=== PATIENT | female | born 1960 | race Caucasian/White ===

== ENCOUNTER 2022-09-09 21:45 | Day surgery (SDC) | payer OTHER, SELFPAY ==
[2022-09-09 21:52] VITALS: BP 165/91; PULSE 83; RESP 20; TEMP 36.3; O2SAT 99; BMI 23.0
[2022-09-09 22:17] VITALS: BP 142/80; PULSE 73; RESP 14; TEMP 36.4; O2SAT 98
--- NOTE | 2022-09-09 22:50 | ED.GENADULT ---
HPI - General Adult General Chief complaint: General Medical Stated complaint: meat stuck in throat Time Seen by Provider: 09/09/22 22:31 History of Present Illness HPI narrative: This is a 61-year-old female with a history of hypercholesterolemia who was eating pot roast this evening when a piece of meat became lodged in her lower throat. The patient states that when she drinks water, the water gurgling came back up. She is tolerating her saliva. She has continued discomfort in her lower throat. She denies any trouble breathing. She denies any other significant past medical history, is on cholesterol medicine only Related Data Allergies Allergy/AdvReac Type Severity Reaction Status Date / Time erythromycin base Allergy Mild RASH Unverified 07/25/20 16:25 [ERYTHROMYCIN BASE] tetracycline [TETRACYCLINE] Allergy Mild RASH Unverified 07/25/20 16:25 Review of Systems Review of Systems: As per HPI Constitutional: Constitutional: Denies fever(s) Eyes: Eyes: Reports no additional eye complaints ENT: Reports as per HPI Cardiovascular: Cardiovascular: Reports no additional cardiovascular complaints Respiratory: Respiratory: Reports no additional respiratory complaints Gastrointestinal: Gastrointestinal: Reports no additional gastrointestinal complaints Musculoskeletal: Musculoskeletal: Reports no additional musculoskeletal complaints [facility] Social History Social History Advance Directives: No Advance Directives Information Provided: No Patient : No Physical Exam ED Vital Signs: Vital Signs - 24 hr 09/09/22 21:52 09/09/22 22:17 Temperature 97.3 F 97.6 F Pulse Rate 83 73 Respiratory Rate 20 14 Blood Pressure 165/91 H 142/80 H Pulse Oximetry 99 98 Oxygen Delivery Method Room Air Room Air BMI result Body Mass Index 23.0 Const Other: Patient sitting up on edge of bed, somewhat uncomfortable appearing, tolerating secretions but when drinks water, it comes back up General: no acute distress Orientation/consciousness: patient oriented x3 HENMT Head: Yes normal to inspection General nose exam: Normal external nose present Mouth: moist mucous membranes Throat: Yes posterior oropharynx normal, Yes tonsils normal and Yes uvula midline Eyes Eyelids: Yes eyelids normal Conjunctivae: conjunctivae normal Pupils: Equal, round and reactive pupils present Neck Neck: Yes supple Resp Effort & Inspection: normal respiratory effort Auscultation: clear to auscultation bilaterally Cardio Rate: regular rate Rhythm: regular rhythm Heart sounds: S1 normal heart sound present, S2 normal heart sound present, no gallops, no murmurs and no rubs GI Inspection: No distended Palpation (GI): Soft to palpation and nontender Auscultation: normal bowel sounds Skin General skin exam: other (Warm and dry) Neuro General: patient oriented x3 and CN's II-XI intact bilaterally Cranial nerves: Yes Equal, round and reactive pupils present Extrem General: Yes no pedal edema Psych Affect: normal affect Attitude: cooperative Medical Decision Making [facility] Narrative Medical decision making narrative: Patient with a bolus of food, namely a piece of pot roast, lodged in her lower throat or upper esophagus. Patient did not have any benefit from glucagon. Dr. Hargrove of GI was consulted and patient is going to the endoscopy suite for removal of the impacted food. Lab Data Lab results reviewed: Yes I reviewed the patient's lab results. Result diagrams: 09/09/22 23:29 09/09/22 23:29 Labs: Lab Results 09/09/22 09/09/22 09/09/22 Range/Units 23:29 23:29 23:55 WBC 5.9 (4.8-10.8) X10*3/uL RBC 4.07 L (4.20-5.50) X10*6/uL Hgb 11.9 L (12.0-16.0) g/dl Hct 37.8 (37.0-47.0) % MCV 92.9 (80.0-98.0) fL MCH 29.2 (27.0-33.0) pg MCHC 31.5 (31.0-35.0) g/dl RDW 12.5 (11.0-16.0) % Plt Count 179 (160-400) X10*3/uL MPV 10.9 (9.4-12.3) fL Immature Gran % (Auto) 0.3 (0.0-0.4) % Neut % (Auto) 73.2 H (45-73) % Lymph % (Auto) 16.0 L (20-40) % Greer % (Auto) 7.0 (2-11) % Eos % (Auto) 2.7 (0-4) % Baso % (Auto) 0.8 (0-2) % Lymph # (Auto) 0.9 L (1.2-4.9) X10*3/uL Gre[place] # (Auto) 0.4 (0.1-1.2) X10*3/uL Eos # (Auto) 0.2 (0.0-0.4) X10*3/uL Baso # (Auto) 0.1 (0.0-0.2) X10*3/uL Abs Immat Gran (auto) 0.02 (0.00-0.03) X10*3/uL Absolute Neuts (auto) 4.3 (2.0-8.3) x10*3/uL Absolute Nucleated RBC 0.000 (0.0-0.012) X10*3/uL Nucleated RBC % (auto) 0.0 (0.0-0.2) /100WBC Sodium 144 (135-145) mmol/L Potassium 4.3 (3.3-5.1) mmol/L Chloride 106 (96-108) mmol/L Carbon Dioxide 29 (22-29) mmol/L Anion Gap 13 (12-20) BUN 20 H (9-16) mg/dL Creatinine 0.78 (0.5-1.4) mg/dL Estim Creat Clear Calc 61.8 Estimated GFR > 60 Random Glucose 124 H (60-115) mg/dL Calcium 9.8 (8.4-10.2) mg/dL Total Bilirubin 0.3 (0.0-1.0) mg/dL AST 17 (5-31) U/L ALT 15 (0-31) U/L Alkaline Phosphatase 90 (39-117) U/L Total Protein 7.3 (6.5-8.0) g/dL Albumin 4.6 (3.5-5.0) g/dL COVID-19 (NIYAH) Negative (Negative) COVID-19 Clin Com See Note Discharge Plan Discharge Clinical Impression: Food impaction of esophagus Patient Disposition: Admitted as Observation
[2022-09-09 23:34] LABS: MANUAL DIFF FLAG NO
[2022-09-09 23:35] LABS: Basophils Absolute Auto 0.1 X10*3/uL (0.0-0.2); Basophils Percent Auto 0.8 % (0-2); Eosinophils Absolute Auto 0.2 X10*3/uL (0.0-0.4); Eosinophils Percent Auto 2.7 % (0-4); Hematocrit 37.8 % (37.0-47.0); Hemoglobin 11.9 g/dl (12.0-16.0); Imm Gran Abs Auto 0.02 X10*3/uL (0.00-0.03); Imm Gran Pct Auto 0.3 % (0.0-0.4); Lymphocytes Absolute Auto 0.9 X10*3/uL (1.2-4.9); Mean Corpuscular HGB Conc 31.5 g/dl (31.0-35.0); Mean Corpuscular Hemoglobin 29.2 pg (27.0-33.0); Mean Corpuscular Volume 92.9 fL (80.0-98.0); Mean Platelet Volume 10.9 fL (9.4-12.3); Monocytes Absolute Auto 0.4 X10*3/uL (0.1-1.2); Neutrophils Absolute Auto 4.3 x10*3/uL (2.0-8.3); Neutrophils Percent Auto 73.2 % (45-73); Platelet Count 179 X10*3/uL (160-400); Red Blood Count 4.07 X10*6/uL (4.20-5.50); Red Cell Distribution Width 12.5 % (11.0-16.0); White Blood Count 5.9 X10*3/uL (4.8-10.8)
[2022-09-09 23:51] LABS: Alanine Aminotransferase 15 U/L (0-31); Albumin Level 4.6 g/dL (3.5-5.0); Alkaline Phosphatase 90 U/L (39-117); Anion Gap 13 (12-20); Aspartate Amino Transferase 17 U/L (5-31); Bilirubin Total 0.3 mg/dL (0.0-1.0); Blood Urea Nitrogen 20 mg/dL (9-16); Calcium 9.8 mg/dL (8.4-10.2); Carbon Dioxide 29 mmol/L (22-29); Chloride 106 mmol/L (96-108); Creatinine Clr Calc Pharmacy 61.8; Estimated Glomerular Filt Rate > 60; Glucose Random 124 mg/dL (60-115); Potassium 4.3 mmol/L (3.3-5.1); Sodium 144 mmol/L (135-145); Total Protein 7.3 g/dL (6.5-8.0)
--- NOTE | 2022-09-10 00:12 | HO.ANESPROP2 ---
[facility] Past Medical History Functional capacity: independent ambulation Patient : No Family History Family history of problems with anesthesia: No Surgical History History of Problems with Anesthesia: No Social History Social History Advance Directives: No Advance Directives Information Provided: No Patient : No Meds Allergies Allergy/AdvReac Type Severity Reaction Status Date / Time erythromycin base Allergy Mild RASH Unverified 07/25/20 16:25 [ERYTHROMYCIN BASE] tetracycline [TETRACYCLINE] Allergy Mild RASH Unverified 07/25/20 16:25 Exam Exam Date and Time: September 10, 2022 0012 Height,Weight and Vital Signs: Height 5 ft 3 in Weight 58.967 kg Last Vital Signs Temp 97.6 F 09/09/22 22:17 Pulse 73 09/09/22 22:17 Resp 14 09/09/22 22:17 BP 142/80 H 09/09/22 22:17 Pulse Ox 98 09/09/22 22:17 O2 Del Method 09/09/22 22:17 Pertinent Lab Results Pertinent Lab Results: Laboratory Tests 09/09/22 09/09/22 23:29 23:29 WBC 5.9 RBC 4.07 L Hgb 11.9 L Hct 37.8 MCV 92.9 MCH 29.2 MCHC 31.5 RDW 12.5 Plt Count 179 MPV 10.9 Immature Gran % (Auto) 0.3 Neut % (Auto) 73.2 H Lymph % (Auto) 16.0 L Meagher % (Auto) 7.0 Eos % (Auto) 2.7 Baso % (Auto) 0.8 Lymph # (Auto) 0.9 L Meagher # (Auto) 0.4 Eos # (Auto) 0.2 Baso # (Auto) 0.1 Abs Immat Gran (auto) 0.02 Absolute Neuts (auto) 4.3 Absolute Nucleated RBC 0.000 Nucleated RBC % (auto) 0.0 Sodium 144 Potassium 4.3 Chloride 106 Carbon Dioxide 29 Anion Gap 13 BUN 20 H Creatinine 0.78 Estim Creat Clear Calc 61.8 Estimated GFR > 60 Random Glucose 124 H Calcium 9.8 Total Bilirubin 0.3 AST 17 ALT 15 Alkaline Phosphatase 90 Total Protein 7.3 Albumin 4.6 Airway Mallampati Class: II TM Dist: >3cm Neck ROM: Full Heart: RRR Lungs: CTA Assessment and Plan Assessment Anesthesia Assessment: Anesthesia Plan Discussed and Chart Reviewed Final Anesthetic Review Family History of Problems with Anesthesia: No History of Problems with Anesthesia: No ASA Class: II and Emergency Final Preanesthetic Review: Meds/Allgs Chart Reviewed, Consent Obtained/Reviewed and Anes Risks/Benef Reviewed Patient Risk: Low Procedure Risk: Low Anesthetic Plan Anesthetic Plan: GA Disposition: Standard PACU
--- NOTE | 2022-09-10 00:14 | MHC.SHP ---
Pre-Procedural Eval Section A Date of Service: 09/10/22 The patient is an INPATIENT: No Changes since office visit: No Cold of Flu in the past 2 weeks, No New Medical Problems, No Changes in Medication and No Patient answered all questions The History & Physical has been completed within 30 days and I have reviewed it.: Yes Section B Chief Complaint: meat stuck in throat Allergies: Allergies Allergy/AdvReac Type Severity Reaction Status Date / Time erythromycin base Allergy Mild RASH Unverified 07/25/20 16:25 [ERYTHROMYCIN BASE] tetracycline [TETRACYCLINE] Allergy Mild RASH Unverified 07/25/20 16:25 Plan I have reviewed the history and physical and performed a pertinent physical examination on my patient. No changes have occurred unless specified.
[2022-09-10 00:17] LABS: COVID-19 Test Negative (Negative); IDNOW Serial# 16C4AD1C
--- NOTE | 2022-09-10 00:55 | P.BOP_ITS ---
Brief Operative Note Date of Service: 09/10/22 Pre-op diagnosis: fb esophagus Post-op diagnosis: same Procedure: egd Surgeon: Tarun Hargrove Anesthesia: GETA Was an [facility] used for this Procedure?: No Estimated blood loss (mL): 2 Pathology: none sent Condition: stable Disposition: PACU
[2022-09-10 01:06] VITALS: BP 136/73; PULSE 71; RESP 16; TEMP 36.1; O2SAT 95
--- NOTE | 2022-09-10 01:09 | HO.POSTANES ---
Post Anesthesia Evaluation Post Anesthesia Evaluation Vital Signs: Vital Signs Temp Pulse Resp BP Pulse Ox O2 Del Method 09/09/22 22:17 97.6 F 73 14 142/80 H 98 Room Air 09/09/22 21:52 97.3 F 83 20 165/91 H 99 Room Air Anesthesia: Monitored Pain Control: Satisfactory Nausea/Vomiting: None Hydration: Adequate Anesthesia-Related Issues: No Anes. Related Issues
[2022-09-10 01:21] VITALS: BP 135/73; PULSE 61; RESP 16; TEMP 36.1; O2SAT 96
--- NOTE | 2022-09-10 08:27 | OP_ITS ---
SURGEON: Tarun Hargrove MD INDICATIONS: Esophageal foreign body. PREOPERATIVE DIAGNOSIS: POSTOPERATIVE DIAGNOSIS: PROCEDURE PERFORMED: Upper endoscopy with removal of foreign body on 09/10/22. ESTIMATED BLOOD LOSS: COMPLICATIONS: ANESTHESIA: General anesthesia. ASSISTANTS: SPECIMENS: DESCRIPTION OF PROCEDURE: History and physical performed. The risks and benefits of the procedure were explained to the patient. Informed consent was obtained. The patient was placed in the left lateral decubitus position. The Olympus video gastroscope was introduced into the esophagus, stomach, and duodenum. Examination was performed. The scope was removed. She tolerated the procedure well and was taken to recovery area in stable condition. FINDINGS: Esophagus: Just below the upper esophageal sphincter, there was a large food bolus consistent with impacted meat. This was gently pushed into the stomach. There was a slight superficial laceration at the site of the food bolus at about 16 cm from the lips. There was no stricture. The remainder of the esophagus was normal. Stomach: The stomach was normal. Duodenum: The bulb and second portion were normal. IMPRESSION: Foreign body of esophagus. RECOMMENDATION: 1. Soft diet x24 hours. 2. Follow up as needed. MD TERRI Calhoun/BALA / [id number] MTDD
--- NOTE | 2022-09-10 08:50 | CONS_ITS ---
DATE OF SERVICE: 09/10/2022 REFERRING PHYSICIAN: Dr. Lundberg REASON FOR CONSULTATION: Foreign body in the esophagus. HISTORY OF PRESENT ILLNESS: The patient is a pleasant 61-year-old woman who presented to the ER earlier this evening with complaints of dysphagia. Symptoms began around 9 p.m. when she was eating meat. Since that time, she has been unable to swallow water. She denies a prior history of esophageal problems. She has not had food impactions before. She has no chronic GERD symptoms. She has never undergone upper endoscopy. PAST MEDICAL HISTORY: 1. Lupus. 2. Elevated cholesterol. CURRENT MEDICATIONS: She takes a cholesterol medication. ALLERGIES: MEDICATION ALLERGIES ARE REVIEWED IN THE ELECTRONIC MEDICAL RECORD. FAMILY HISTORY: This is reviewed and is noncontributory. SOCIAL HISTORY: She does occasionally vape. She does drink alcohol. She denies other substance use. REVIEW OF SYSTEMS: SKIN: No pruritus. HEENT: Negative. CARDIOPULMONARY: No shortness of breath or chest pain. GASTROINTESTINAL: As above. GENITOURINARY: Negative. NEUROPSYCHIATRIC: Negative. PHYSICAL EXAMINATION: GENERAL: Shows a pleasant female, lying in bed. VITAL SIGNS: Reviewed in the electronic medical record and are stable. SKIN: Anicteric. HEENT: Shows poor dentition. NECK: Without lymphadenopathy or thyromegaly. LUNGS: Clear. HEART: Shows a regular rate and rhythm. S1, S2. No murmur. ABDOMEN: Soft without focal masses or tenderness. Bowel sounds are present. No organomegaly is noted. EXTREMITIES: Without edema. IMPRESSION: Foreign body, esophagus. PLAN: Upper endoscopy. Risks and benefits of the procedure have been discussed with the patient who understands and agrees to proceed. MD TERRI Calhoun/BALA / [id number] KEENA
--- NOTE | 2022-09-10 09:22 | MHC.CM.PN ---
Patient d/c'd home before being seen by case management.
== END 2022-09-10 01:58 | disposition home or self-care (01) ==
LOC: HO.ED 09-10 01:52 → HO.SSS 09-10 01:58
PROVIDERS: Physician Assistant; Emergency Provider Emergency Medicine; PCP Internal Medicine; Visit Provider Internal Medicine Gastroenterology
PROC: 0DJ08ZZ Inspection of Upper Intestinal Tract, Via Natural or Artificial Opening Endoscopic (ICD-10-PCS; CPT 43235; principal; 2022-09-10 00:10)
DX: T18.128A Food in esophagus causing other injury, initial encounter (principal); X58.XXXA Exposure to other specified factors, initial encounter; Y93.89 Activity, other specified; Y92.019 Unspecified place in single-family (private) house as the place of occurrence of the external cause; Y99.9 Unspecified external cause status; E78.00 Pure hypercholesterolemia, unspecified; Z79.899 Other long term (current) drug therapy; Z88.1 Allergy status to other antibiotic agents; Z20.822 Contact with and (suspected) exposure to COVID-19
CPT/HCPCS: 43247; 36415; 80053; 85025; 87635; 96374; 99285; J1100; J1610; J2405; J3010

== ENCOUNTER 2024-05-06 22:08 | Inpatient (IN) | payer OTHER, SELFPAY ==
--- NOTE | ~2024-05-06 | XR_ITS ---
EXAMINATION: XR CHEST CLINICAL INFORMATION: Chest tube removal. Follow-up right pneumothorax. COMPARISON: Earlier 05/10/2024 examination. TECHNIQUE: Frontal view of the chest was obtained. FINDINGS: Right-sided chest tube is been removed. Small right apical pneumothorax stable. Right basilar infiltrate and pleural effusion stable. The patient is rotated. Mediastinal structures therefore are angled towards the left hemithorax but I suspect this is positional. No change. Skin folds are present overlying the left hemithorax and there is left basilar consolidation and pleural effusion which are stable. The right-sided port is stable in position. Heart size is normal with normal caliber pulmonary vessels. XR/XR chest 1V IMPRESSION: Status post removal of the right-sided chest tube. Tiny right apical pneumothorax is again visualized and is considered stable.
--- NOTE | ~2024-05-06 | XR_ITS ---
EXAMINATION: XR CHEST CLINICAL INFORMATION: Right chest tube placement. COMPARISON: CT from 05/06/2024 TECHNIQUE: Frontal view of the chest was obtained. FINDINGS: There is a pigtail chest tube overlying the right upper lobe. Small right pneumothorax is again noted, not appreciably changed as compared to prior. Right IJ port catheter tip terminates near the inferior cavoatrial junction within the right atrium. Cavitary consolidation in the right lower lobe is again noted. Atelectasis is again seen in the left lower lobe with a trace left pleural effusion. No left-sided pneumothorax. Cardiac and mediastinal contours are normal. No acute osseous findings. Blunting of the left distal clavicle, potentially due to an old injury or prior distal clavicular resection. XR/XR chest 1V IMPRESSION: 1. Small right pneumothorax, not appreciably changed as compared to prior. Right chest tube in place. 2. Cavitary consolidation in the right lower lobe, unchanged. 3. Trace left pleural effusion with left lower lobe atelectasis.
--- NOTE | ~2024-05-06 | US_ITS ---
Ultrasound paracentesis History: Ascites. Pancreatic cancer Risks and benefits and possible complications were discussed with the patient and consent form was signed. A safe pocket of ascitic fluid was identified using ultrasound guidance, and the overlying skin was marked. The abdomen prepped and draped in sterile fashion. 1% lidocaine was used as a local anesthetic. Using ultrasound guidance, a 5 fr catheter was placed into the ascitic pocket. 1.9 liters of yellow fluid was removed passively. The catheter was then removed. A few field support representative images from before and after the examination were obtained. The procedure was performed by Ted Bey PA-C and supervised by Dr. Alejandra. US/US paracentesis abd w/image Impression: Ultrasound-guided paracentesis as described above. No immediate complications
--- NOTE | ~2024-05-06 | CT_ITS ---
EXAMINATION: CT CHEST WITHOUT CONTRAST CLINICAL INFORMATION: Fall. Concern for pneumothorax. COMPARISON: None available. TECHNIQUE: Multidetector volumetric CT imaging of the chest was done. Axial MIP volume rendering provided. Sagittal and coronal reformatted images were obtained. This CT examination was performed using dose optimization techniques as appropriate, variously including the following: *Automated exposure control *Adjustment of mA and/or kV according to patient size (this includes techniques or standardized protocols for targeted exams where dose is matched to indication/reason for exam; i.e. extremities or head) *Use of iterative reconstruction technique DLP: 176 mGy-cm FINDINGS: LUNGS: Dense consolidation at the posterior right lung base. Regions of cavitation in this area of consolidation. There is consolidation volume loss the left lung base without evidence of cavitation. MEDIASTINUM: Heart size is normal. No pericardial effusion. Central port catheter tip at the caval atrial junction in superior vena cava. CORONARY ARTERY CALCIFICATION: None visualized on this study. PLEURA: Small volume right-sided pneumothorax. Small volume bilateral pleural effusions. AXILLA: No lymphadenopathy. UPPER ABDOMEN: Abdominal ascites. OSSEOUS STRUCTURES: Unremarkable. CT/CT chest wo IV con IMPRESSION: 1. Small volume right-sided pneumothorax. 2. Dense consolidation at the posterior right lung base with areas of cavitation. This may be source for the pneumothorax. 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 3. Consolidation volume loss at the left lung base without evidence of cavitation. 4. Small volume bilateral pleural effusions. 5. Abdominal ascites. Fleischner guidelines were followed. This critical result was discussed with Katelin JACKSON on 05/07/2024, 12:26 AM and it was ascertained that the content and urgency of the report was understood at the time of direct communication.
--- NOTE | ~2024-05-06 | XR_ITS ---
EXAMINATION: XR CHEST CLINICAL INFORMATION: Follow-up pneumothorax. COMPARISON: Chest radiograph 05/09/2024 2:01 PM. TECHNIQUE: Frontal view of the chest was obtained. FINDINGS: 6 the right thoracostomy tube is unchanged in configuration. A right pectoral tunneled internal jugular catheter terminates in projection with the inferior margin of the right atrium. A trace right pneumothorax is again noted and is unchanged in size compared with 05/09/2024 2:01 PM measuring approximately 10%. Mild blunting of left right costophrenic sulci is noted along with bibasilar airspace type opacities. XR/XR chest 1V IMPRESSION: *Unchanged small right pneumothorax compared with 05/09/2024 2:01 PM. Estimated size: Less than 10%. *Unchanged small bilateral pleural effusions and mild bibasilar atelectasis and/or consolidation.
--- NOTE | ~2024-05-06 | CT_ITS ---
EXAMINATION: CT head/brain wo IV con CT cervical spine wo IV con INDICATION INFORMATION: fall, head strike, on thinners COMPARISON: None TECHNIQUE: Separate noncontrast CT examinations of the head and cervical spine were performed. Coronal and sagittal reformats were obtained at the acquisition workstation. This CT examination was performed using dose optimization techniques as appropriate, variously including the following: * Automated exposure control * Adjustment of mA and/or kV according to patient size (this includes techniques or standardized protocols for targeted exams where dose is matched to indication/reason for exam; i.e. extremities or head) * Use of iterative reconstruction technique DLP: 785 mGy-cm FINDINGS: HEAD: There is no evidence of acute intracranial hemorrhage or territorial infarction. Yoon to white matter differentiation is well preserved. No abnormal mass effect or midline shift is seen. No extra-axial fluid collections are identified. No hydrocephalus. No significant volume loss. Patchy periventricular and deep white matter hypoattenuation is consistent with mild small vessel ischemic changes. The cerebellar tonsils are well positioned. Subgaleal hematoma overlying the high posterior left parietal scalp without underlying calvarial fracture. Hyperostosis frontalis interna. Visualized portions of the orbits are unremarkable. The mastoid air cells and visualized portions of the paranasal sinuses are well aerated. CERVICAL SPINE: No evidence of acute fracture or traumatic subluxation of the cervical spine. Normal cervical lordosis with mild anterolisthesis of C4 on C5 and C7 on T1. Vertebral body heights and intervertebral disc spaces are maintained. Mild multilevel facet arthropathy. The atlantoaxial and atlantooccipital articulations are intact. No prevertebral soft tissue swelling. There is no cervical lymphadenopathy. Heterogeneous thyroid. Small right apical pneumothorax partially visualized. CT/CT cervical spine wo IV con IMPRESSION: 1. No acute intracranial pathology. Subgaleal hematoma overlying the high posterior left parietal scalp without underlying calvarial fracture. 2. No acute osseous abnormality within the cervical spine. 3. Small right apical pneumothorax partially visualized. These results were discussed with Dr. Jenkins by telephone on 05/06/2024 at 11:31 PM and it was ascertained that the content of the report was understood at the time of direct communication.
--- NOTE | ~2024-05-06 | XR_ITS ---
EXAMINATION: XR CHEST CLINICAL INFORMATION: Follow-up pneumothorax COMPARISON: Chest radiograph 05/07/2024, CT chest 05/06/2024 TECHNIQUE: Frontal view of the chest was obtained. FINDINGS: Heart size normal. Right chest wall jugular port with tip positioned low at the IVC/right atrial junction. Bilateral pleural effusions appear slightly increased when compared to prior. Right sided pneumothorax has decreased in size with right chest tube present with a small residual apical pneumothorax. Bibasilar atelectasis is seen and unchanged with rounded area at the right lung base.. XR/XR chest 1V IMPRESSION: 1. Decreased size of right-sided pneumothorax with small residual apical pneumothorax. 2. Bilateral pleural effusions appear slightly increased when compared to prior. 3. Bibasilar atelectasis with rounded area at the right lung base.
--- NOTE | ~2024-05-06 | XR_ITS ---
EXAMINATION: XR CHEST CLINICAL INFORMATION: Follow-up pneumothorax COMPARISON: Chest radiograph 05/08/2024 8:18 AM TECHNIQUE: Frontal view of the chest was obtained. FINDINGS: A right thoracostomy tube is unchanged in configuration. A right pectoral tunneled internal jugular catheter terminates projection with the inferior margin of the right atrium. Moderate blunting of the left right costophrenic sulci visualized. A trace apical right pneumothorax is visualized and is less conspicuous than on the comparison examination. Coarse bibasilar reticular opacities and airspace opacities are noted. XR/XR chest 1V IMPRESSION: *Trace right pneumothorax decreased in size compared with 05/08/2024 8:18 AM. *Persistent small bilateral pleural effusions and mild bibasilar atelectasis and/or consolidation.
--- NOTE | ~2024-05-06 | XR_ITS ---
EXAMINATION: XR CHEST CLINICAL INFORMATION: Pneumothorax reevaluation COMPARISON: Prior 05/09/2024 study. TECHNIQUE: Frontal view of the chest was obtained. FINDINGS: Right-sided thoracostomy tube is stable in appearance. The right-sided port is stable in appearance. Bibasilar pleural effusions are stable as are bibasilar areas of atelectasis or infiltrate. The previously described tiny right apical pneumothorax is unchanged and barely conspicuous. Skin folds overlie the left hemithorax. Heart size normal normal caliber pulmonary vessels. XR/XR chest 1V IMPRESSION: Stable trace right pneumothorax.
[2024-05-06 22:14] VITALS: BP 125/62; PULSE 86; RESP 20; TEMP 37.2; O2SAT 94; BMI 17.7
--- NOTE | 2024-05-06 23:32 | ED.FALL ---
HPI - Fall General Chief Complaint: Fall Stated Complaint: Fall head inj/on blood thinners Time Seen by Provider: 05/06/24 23:20 Source: patient Mode of arrival: ambulatory Limitations: no limitations History of Present Illness ED Provider: regla HEREDIA Narrative: Patient's history of pancreatic adenocarcinoma cancer diagnosed on 01/01 history of PE and cavitary pneumonia right lung, on Eliquis discharged from [facility] 04/24/2024-05/04/2024 was outside on the porch tripped and fell backwards onto cement step comes here with laceration to the back of the head denies any shortness of breath or any other injuries no chest pain no back pain patient camein cervical collar Related Data Allergies Allergy/AdvReac Type Severity Reaction Status Date / Time erythromycin base Allergy Mild RASH Verified 05/06/24 22:16 [ERYTHROMYCIN BASE] tetracycline [TETRACYCLINE] Allergy Mild RASH Verified 05/06/24 22:16 Review of Systems Review of Systems: Yes all other systems are reviewed and are negative [facility] Past Medical History Medical History (Updated 05/07/24 @ 07:14 by Phani Jenkins MD) Cavitary pneumonia Graves disease Discoid lupus Hyperlipidemia Pulmonary embolism Adenocarcinoma of pancreas Social History Social History Smoked in Last 30 Days: Yes Use of substances other than those prescribed or required for medical reasons: No Advance Directives: No Advance Directives Information Provided: No Do you have a plan to hurt others: No Plan Patient : No Physical Exam Vital Signs: Vital Signs: Last Vital Signs Temp 98.9 F 05/06/24 22:14 Pulse 61 05/07/24 05:10 Resp 17 05/07/24 05:10 BP 112/66 05/07/24 05:10 Pulse Ox 98 05/07/24 05:10 O2 Del Method Nasal Cannula 05/07/24 05:10 O2 Flow Rate 1 05/07/24 05:10 BMI result Body Mass Index 17.7 Appearance: Alert. Oriented X3. No acute distress. Emaciated thin Eyes: PERRLA, No Nystagmus HEENT: Pharynx normal. Oral Mucosa moist superficial laceration at the occipital area Neck: Normal inspection. Neck supple. CVS: Normal heart rate and rhythm. Pulses normal. Respiratory: No respiratory distress. Equal air entry bilateral, no wheezing/rales/rhonchi Port-A-Cath on the right side Abdomen: Soft and nontender. Bowel sounds are present, no mass palpable, no CVA tenderness Skin: Skin warm and dry. Normal skin color. Normal skin turgor. Extremities: No lower extremity edema. No calf tenderness Neuro: Oriented X 3. No motor deficit. No sensory deficit.No cerebellar signs , cranial nerves II-XII intact Medications Administered Generic Name Dose Route Start Last Admin Trade Name Freq PRN Reason Stop Dose Admin Lactated Ringer's 1,000 mls @ 80 mls/hr 05/07/24 03:30 05/07/24 03:38 Lr IVCONT 05/07/24 13:29 80 mls/hr .[id number] GARRY Administration Discontinued Medications Generic Name Dose Route Start Last Admin Trade Name Freq PRN Reason Stop Dose Admin Piperacillin Sod/Tazobactam 50 mls @ 100 mls/hr 05/07/24 01:58 05/07/24 03:03 Sod 3.375 gm/ Sodium Chloride IV 05/07/24 02:27 Infused ONCE ONE Infusion Lidocaine HCl 5 ml 05/07/24 01:26 05/07/24 01:57 Lidocaine Hcl 1 % Mpf 5 Ml Vial INFILTRATI 05/07/24 01:27 5 ml ONCE ONE Administration Morphine Sulfate 4 mg 05/07/24 01:26 05/07/24 01:35 Morphine Sulfate 4 Mg/Ml Cartridge IVPUSH 05/07/24 01:27 4 mg ONCE ONE Administration Protocol Ondansetron HCl 4 mg 05/07/24 01:26 05/07/24 01:35 Ondansetron Hcl 4 Mg/2 Ml Vial IVPUSH 05/07/24 01:27 4 mg ONCE ONE Administration Oxycodone HCl 15 mg 05/07/24 03:14 05/07/24 03:33 Oxycodone Hcl Immed Release 15 Mg Tablet PO 05/07/24 03:15 15 mg ONCE ONE Administration Procedures Chest Tube Chest Tube 1: Chest Tube Location: right and anterior axillary line Size of Tube (cm): 7 Chest Tube Prep: Yes betadine prep Local Anesthetic: lidocaine 1% Amount of anesthesia used (mL): 5 Incision Made With: #11 blade Post Procedure: sutured to skin and sterile dressing applied Tube Drainage: none Laceration Laceration 1: Site: scalp Size (cm): 3 Description: linear Depth: simple, single layer Skin layer closed with: other ([place] #6) Medical Decision Making Medical Decision Making [facility] Narrative: Patient with history of pancreatic cancer cavitary right pneumonia PE came after mechanical fall patient admitted discharge from [facility] on 05/04 on Augmentin comes here after mechanical fall at CT C-spine negative chest CT showed 10-15% right pneumothorax with? Broncho pulmonary fistula? Patient had a pigtail catheter placed spoke with Dr. Braswell thoracic surgeon will follow in a.m. will admit patient for cavitary pneumonia/bronchopulmonary fistula/pneumothorax patient is saturating 92% at room air improved to 99% on 2 L erlin placed on scalp laceration Differential Diagnosis Differential Diagnoses: The differential diagnosis associated with the presentation includes As above Admission/Observation Consideration of admission/observation: Escalation of care including admission/observation considered Consult Healthcare Provider Management of the patient was discussed with: Hospitalist Lab Data [facility] Lab Attestation statement: I reviewed the patient's lab results. 05/07/24 05:22 05/07/24 05:22 Labs: Lab Results 05/07/24 05/07/24 05/07/24 Range/Units 00:38 00:39 01:10 WBC 12.7 H (4.8-10.8) X10*3/uL RBC 3.37 L (4.20-5.50) X10*6/uL Hgb 9.4 L D (12.0-16.0) g/dl Hct 29.3 L D (37.0-47.0) % MCV 86.9 (80.0-98.0) fL MCH 27.9 (27.0-33.0) pg MCHC 32.1 (31.0-35.0) g/dl RDW 18.4 H (11.0-16.0) % Plt Count 395 D (160-400) X10*3/uL MPV 10.1 (9.4-12.3) fL Immature Gran % (Auto) 1.1 H (0.0-0.4) % Neut % (Auto) 82.0 H (45-73) % Lymph % (Auto) 11.1 L (20-40) % [place] % (Auto) 5.5 (2-11) % Eos % (Auto) 0.1 (0-4) % Baso % (Auto) 0.2 (0-2) % Lymph # (Auto) 1.4 (1.2-4.9) X10*3/uL Kingman # (Auto) 0.7 (0.1-1.2) X10*3/uL Eos # (Auto) 0.0 (0.0-0.4) X10*3/uL Baso # (Auto) 0.0 (0.0-0.2) X10*3/uL Abs Immat Gran (auto) 0.14 H (0.00-0.03) X10*3/uL Absolute Neuts (auto) 10.4 H (2.0-8.3) x10*3/uL Absolute Nucleated RBC 0.000 (0.0-0.012) X10*3/uL Nucleated RBC % (auto) 0.0 (0.0-0.2) /100WBC PT 17.4 H (11.1-13.3) SEC INR 1.4 H (0.9-1.1) APTT 29.0 (26.0-36.8) SEC Sodium 133 L (135-145) mmol/L Potassium 4.4 (3.3-5.1) mmol/L Chloride 95 L (96-108) mmol/L Carbon Dioxide 26 (22-29) mmol/L Anion Gap 16 (12-20) BUN 6 L (9-16) mg/dL Creatinine 0.49 L (0.5-1.4) mg/dL Estim Creat Clear Calc 85.5 Estimated GFR > 60 Random Glucose 139 H (60-115) mg/dL Lactic Acid 1.0 (0.5-2.0) mmol/L Calcium 9.2 D (8.4-10.2) mg/dL Phosphorus 3.7 (2.7-4.5) mg/dL Magnesium 1.7 (1.6-2.6) mg/dL Total Bilirubin 0.3 (0.0-1.0) mg/dL AST 33 H (5-31) U/L ALT 14 (0-31) U/L Alkaline Phosphatase 88 (39-117) U/L Total Protein 7.4 (6.5-8.0) g/dL Albumin 2.5 L (3.5-5.0) g/dL Independent Interpretation I performed an independent interpretation of an: Plain X-Ray and CT Scan Radiology Impression Discussion of test interpretation with radiology: I have reviewed the radiologist's reading. Radiologist Impression: CT/CT chest wo IV con IMPRESSION: 1. Small volume right-sided pneumothorax. 2. Dense consolidation at the posterior right lung base with areas of cavitation. This may be source for the pneumothorax. 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 3. Consolidation volume loss at the left lung base without evidence of cavitation. 4. Small volume bilateral pleural effusions. 5. Abdominal ascites. Fleischner guidelines were followed. External Record Review External record reviewed: Inpatient record Critical Care Time Critical Care Time Critical Care Time: Yes Total Critical Care Time: 70 Attestation: The patient was critically ill with a high probability of imminent or life threatening deterioration. I spent greater than 70???minutes of discontinuous time evaluating the patient,delivering critical care at the bedside, discussing and evaluating pertinent data with consultants. Critical care time does not include time spent performing separately billable procedures or teaching. Total time spent performing critical care was 65???minutes. Discharge Plan Discharge Clinical Impression: Laceration of scalp, Pneumothorax on right, Cavitary pneumonia, Pancreatic cancer Patient Disposition: Admitted As Inpatient
[2024-05-06 23:37] VITALS: BP 133/71; PULSE 84; RESP 18; O2SAT 93
[2024-05-07] VITALS: BP 138/71; PULSE 78; RESP 14; O2SAT 98
[2024-05-07 00:44] LABS: MANUAL DIFF FLAG NO
[2024-05-07 00:45] LABS: Basophils Percent Auto 0.2 % (0-2); Eosinophils Percent Auto 0.1 % (0-4); Hematocrit 29.3 % (37.0-47.0); Hemoglobin 9.4 g/dl (12.0-16.0); Imm Gran Abs Auto 0.14 X10*3/uL (0.00-0.03); Imm Gran Pct Auto 1.1 % (0.0-0.4); Lymphocytes Absolute Auto 1.4 X10*3/uL (1.2-4.9); Lymphocytes Percent Auto 11.1 % (20-40); Mean Corpuscular HGB Conc 32.1 g/dl (31.0-35.0); Mean Corpuscular Hemoglobin 27.9 pg (27.0-33.0); Mean Corpuscular Volume 86.9 fL (80.0-98.0); Mean Platelet Volume 10.1 fL (9.4-12.3); Monocytes Absolute Auto 0.7 X10*3/uL (0.1-1.2); Monocytes Percent Auto 5.5 % (2-11); Neutrophils Absolute Auto 10.4 x10*3/uL (2.0-8.3); Platelet Count 395 X10*3/uL (160-400); Red Blood Count 3.37 X10*6/uL (4.20-5.50); Red Cell Distribution Width 18.4 % (11.0-16.0); White Blood Count 12.7 X10*3/uL (4.8-10.8)
[2024-05-07 00:51] LABS: INTERNATIONAL NORM RATIO 1.4 (0.9-1.1); Prothrombin Time 17.4 SEC (11.1-13.3)
[2024-05-07 01:04] LABS: Alanine Aminotransferase 14 U/L (0-31); Albumin Level 2.5 g/dL (3.5-5.0); Alkaline Phosphatase 88 U/L (39-117); Anion Gap 16 (12-20); Aspartate Amino Transferase 33 U/L (5-31); Bilirubin Total 0.3 mg/dL (0.0-1.0); Blood Urea Nitrogen 6 mg/dL (9-16); Calcium 9.2 mg/dL (8.4-10.2); Carbon Dioxide 26 mmol/L (22-29); Chloride 95 mmol/L (96-108); Creatinine Clr Calc Pharmacy 85.5; Estimated Glomerular Filt Rate > 60; Glucose Random 139 mg/dL (60-115); Potassium 4.4 mmol/L (3.3-5.1); Sodium 133 mmol/L (135-145); Total Protein 7.4 g/dL (6.5-8.0)
[2024-05-07] MEDS: Morphine Sulfate 4 MG/ML CARTRIDGE IVPUSH (01:35)
[2024-05-07] MEDS: ondansetron HCL 4 MG/2 ML VIAL IVPUSH (01:35)
[2024-05-07] MEDS: Lidocaine HCl 1 % MPF 5 ML VIAL INFILTRATI (01:57)
[2024-05-07] MEDS: Piperacillin Sodium/Tazobactam 3.375 GM in 0.9 % Sodium Chloride 50 ML IV (02:32)
--- NOTE | 2024-05-07 02:42 | PC.NURSE ---
Pigtail chest tube placed at bedside by MD Jenkins with this RN assisting. Pt tolerated insertion well, no acute distress. pt placed on O2 via NC for support, no respiratory distress noted. Clamp of chst tube closed to outside.
--- NOTE | 2024-05-07 03:27 | PM.IMHP ---
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 She fell because she has been feeling very weak, fell back hitting her head. She denied any loss of consciousness, headache, dizziness or palpitations. She did not report any shortness on breath, cough or chest pain. Her appetite has been very poor. She was recently admitted to [facility] for 10 days and was discharged 3 days ago. During this last hospitalization she underwent a pulmonary CTA that was concerning for pulmonary abscess + pneumonia and treated with IV antibiotics. She was also found to have a hemoglobin of 6.4 for which 1 unit of PRBC was transfused. The patient was evaluated by the ID service and was transitioned from Zosyn IV to Augmentin PO (4-6 weeks). The patient was evaluated by the neurology service as she was found to have hyponatremia, initiating urea tablets along with fluid restriction. Subsequently sodium levels improved and urea was stopped. Mrs. Ballard underwent a Port-A-Cath revision on May 03 by IR as her Port-A-Cath was noted to have an erosion. In the ED, she was found to have normal vital signs including normal oxygen saturation on room air. Blood workup was remarkable for leukocytosis of 12.7 and hemoglobin of 9.4. There is no lactic acidosis. Albumin is 2.5. There is hyponatremia of 133 and hypochloremia. INR is 1.4. Other lytes are normal. Creatinine is 0.49. LFTs are essentially normal. Head CT scan scan showed no acute intracranial pathology, subgaleal hematoma overlying the high posterior left parietal scalp without underlying calvarial fractures, C-spine without dislocation or fractures and small right apical pneumothorax partially visualized. 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 ED tx: Zosyn 3.375 g IV, morphine 4 mg IV, Zofran 4 mg IV Review of Systems Review of Systems: All 12 systems were reviewed and normal except as noted in HPI. [facility] Medical History (Updated 05/07/24 @ 05:05 by Ed Mackay MD) Cavitary pneumonia Graves disease Discoid lupus Hyperlipidemia Pulmonary embolism Adenocarcinoma of pancreas Social History Smoked in Last 30 Days: Yes Use of substances other than those prescribed or required for medical reasons: No Advance Directives: No Advance Directives Information Provided: No Do you have a plan to hurt others: No Plan Patient : No Meds Allergies Allergy/AdvReac Type Severity Reaction Status Date / Time erythromycin base Allergy Mild RASH Verified 05/06/24 22:16 [ERYTHROMYCIN BASE] tetracycline [TETRACYCLINE] Allergy Mild RASH Verified 05/06/24 22:16 Active Medications: Current Medications Acetaminophen (Acetaminophen 325 Mg Tablet) 975 mg PO Q6H PRN PRN Reason: Pain, Mild (Pain Scale 1-3), fever or headache Lactated Ringer's (Lr) 1,000 mls @ 80 mls/hr IVCONT .[id number] [facility] Sodium Chloride (0.9 % Sodium Chloride Flush 3 Ml Syringe) 3 ml IVFLUSH QSHIFT [facility] Physical Exam Vital Signs and Narrative: Vital Signs: Last Vital Signs Temp 98.9 F 05/06/24 22:14 Pulse 78 05/07/24 00:00 Resp 14 05/07/24 00:00 BP 138/71 05/07/24 00:00 Pulse Ox 98 05/07/24 00:00 O2 Del Method Nasal Cannula 05/07/24 00:00 O2 Flow Rate 2 05/07/24 00:00 BMI result Body Mass Index 17.7 Constitutional - Awake and Alert, No apparent distress. Pleasant. Cooperative. Cachectic. HEENT - Left parietal region hematoma. Pupils equally round. Normal sclerae. Dry oral mucosa. Heart - RRR, No murmurs. Lungs - Normal lung expansion, poor respiratory effort due to pain, No respiratory distress, CTA bilaterally Abdomen - Distended. Positive fluid wave/sinus. Nontender numbness. Extremities - lower extremity pitting edema. Musculoskeletal - generalized muscle wasting. Skin - Warm/Dry. No pallor. No jaundice. Neurological - Alert & oriented x3. No focal weakness grossly noted. Normal speech. Psychological - Appropriate affect Results Labs 05/07/24 00:38 05/07/24 00:39 Labs: Laboratory Results - last 24 hr 05/07/24 05/07/24 05/07/24 00:38 00:39 01:10 MCV 86.9 MCH 27.9 MCHC 32.1 RDW 18.4 H Plt Count 395 D MPV 10.1 Immature Gran % (Auto) 1.1 H Neut % (Auto) 82.0 H Lymph % (Auto) 11.1 L [place] % (Auto) 5.5 Eos % (Auto) 0.1 Baso % (Auto) 0.2 Lymph # (Auto) 1.4 [place] # (Auto) 0.7 Eos # (Auto) 0.0 Baso # (Auto) 0.0 Abs Immat Gran (auto) 0.14 H Absolute Neuts (auto) 10.4 H Absolute Nucleated RBC 0.000 Nucleated RBC % (auto) 0.0 PT 17.4 H INR 1.4 H APTT 29.0 Anion Gap 16 Estim Creat Clear Calc 85.5 Estimated GFR > 60 Random Glucose 139 H Lactic Acid 1.0 Calcium 9.2 D Total Bilirubin 0.3 AST 33 H ALT 14 Alkaline Phosphatase 88 Total Protein 7.4 Albumin 2.5 L Imaging Radiologist's Impressions: Impressions Cervical Spine CT 05/06/24 22:51 IMPRESSION: 1. No acute intracranial pathology. Subgaleal hematoma overlying the high posterior left parietal scalp without underlying calvarial fracture. 2. No acute osseous abnormality within the cervical spine. 3. Small right apical pneumothorax partially visualized. These results were discussed with Dr. Jenkins by telephone on 05/06/2024 at 11:31 PM and it was ascertained that the content of the report was understood at the time of direct communication. Head CT 05/06/24 22:51 IMPRESSION: 1. No acute intracranial pathology. Subgaleal hematoma overlying the high posterior left parietal scalp without underlying calvarial fracture. 2. No acute osseous abnormality within the cervical spine. 3. Small right apical pneumothorax partially visualized. These results were discussed with Dr. Jenkins by telephone on 05/06/2024 at 11:31 PM and it was ascertained that the content of the report was understood at the time of direct communication. Chest CT 05/06/24 23:53 IMPRESSION: 1. Small volume right-sided pneumothorax. 2. Dense consolidation at the posterior right lung base with areas of cavitation. This may be source for the pneumothorax. 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 3. Consolidation volume loss at the left lung base without evidence of cavitation. 4. Small volume bilateral pleural effusions. 5. Abdominal ascites. Fleischner guidelines were followed. This critical result was discussed with Katelin JACKSON on 05/07/2024, 12:26 AM and it was ascertained that the content and urgency of the report was understood at the time of direct communication. Chest X-Ray 05/07/24 01:54 IMPRESSION: 1. Small right pneumothorax, not appreciably changed as compared to prior. Right chest tube in place. 2. Cavitary consolidation in the right lower lobe, unchanged. 3. Trace left pleural effusion with left lower lobe atelectasis. Assessment and Plan (1) Pneumothorax on right: Status: Acute (2) Chronic anemia: Status: Acute (3) Chronic hyponatremia: Status: Acute (4) Ascites: Qualifiers: Ascites type: malignant Qualified Code(s): R18.0 - Malignant ascites Status: Acute (5) Pulmonary embolism: Status: Acute (6) Right atrial thrombus: Status: Acute (7) Chronic pain: Status: Acute Plan Betzaida Ballard is a very pleasant 63 y/o woman admitted with: Small right-sided pneumothorax, no hypoxia or acute respiratory symptoms reported. S/p recent right-sided Port-A-Cath revision (05/03; Port-A-Cath was found to have an erosion) by IR at [facility]. ?Bronchial pleural fistula. S/p chest tube placed by ED tonight. Post chest tube placement CXR showed no pneumothorax size changes. Surgery consult, Dr. Braswell, obtained by ED -will see pt in am. Head trauma --> scalp hematoma. Apply ice as needed. s/p fall. PT eval. Fall precautions. Check vitamin-D Hyponatremia, chronic. Na level 131 (05/04). Today is 133. Recently treated with urea pills by Nephrology at [facility]. She has no longer taking urea pills. Continue to monitor. Ascites, s/p paracentesis (04/28; 1700 ml of serous fluid removed, cultures negative). To consider IR consult. Recent diagnosis of pulmonary abscess and pneumonia (not new). Patient is to complete a course of Augmentin X 4-6 weeks (per ID service at [facility]). Continue Augmentin. Chronic anemia, status post recent PRBC transfusion X. Hgb 7.5 (05/04). It is 9.4 today. Continue to monitor. Pancreatic cancer. Chemotherapy on hold due to ongoing pneumonia. Right atrial thrombus and pulmonary embolism. Continue Eliquis. Graves disease in remission. s/p radioactive iodine. TSH 1.99 (04/26). Cancer pain. Continue oxycodone. History of hyperlipidemia. Not taking statin due to poor p.o. intake of calories + malnutrition. Protein calorie malnutrition. BMI 17.7 kg/m2. Ensure tid. Dietary consult. Discoid lupus. The currently on treatment. Constipation. Continue home meds. DVT prophylaxis: Eliquis Code status: Full Patient will need hospitalization for at least 2 midnights for right-sided pneumothorax evaluation and treatment by surgical service. Quality Stroke Does the patient have a stroke diagnosis?: No VTE Prior VTE?: No VTE Risk Level:: Medical - moderate - high VTE Device Contraindication: N/A - Device Ordered VTE Drug Contraindication: Treatment Not Indicated
[2024-05-07] MEDS: oxyCODONE HCl Immed Release 15 MG TABLET PO ×4 (03:33→21:59)
[2024-05-07] MEDS: Lactated Ringers 1,000 ML 80 ML IVCONT (03:38)
[2024-05-07 04:19] LABS: Magnesium 1.7 mg/dL (1.6-2.6); Phosphorus 3.7 mg/dL (2.7-4.5)
[2024-05-07 05:10] VITALS: BP 112/66; PULSE 61; RESP 17; O2SAT 98
[2024-05-07 05:38] LABS: Hematocrit 23.8 % (37.0-47.0); Hemoglobin 7.6 g/dl (12.0-16.0); Mean Corpuscular HGB Conc 31.9 g/dl (31.0-35.0); Mean Corpuscular Hemoglobin 28.1 pg (27.0-33.0); Mean Corpuscular Volume 88.1 fL (80.0-98.0); Mean Platelet Volume 10.2 fL (9.4-12.3); Platelet Count 337 X10*3/uL (160-400); Red Cell Distribution Width 18.3 % (11.0-16.0); White Blood Count 8.9 X10*3/uL (4.8-10.8)
[2024-05-07 05:50] LABS: Anion Gap 14 (12-20); Blood Urea Nitrogen 4 mg/dL (9-16); Calcium 8.9 mg/dL (8.4-10.2); Carbon Dioxide 25 mmol/L (22-29); Chloride 98 mmol/L (96-108); Creatinine Clr Calc Pharmacy 91.1; Estimated Glomerular Filt Rate > 60; Glucose Random 120 mg/dL (60-115); Potassium 4.5 mmol/L (3.3-5.1); Sodium 132 mmol/L (135-145)
[2024-05-07 07:04] LABS: Vitamin D 25-OH Total 23.9 ng/mL (>30)
[2024-05-07] MEDS: oxyCODONE HCl Immed Release 5 MG TABLET 10 MG PO (07:57)
--- NOTE | 2024-05-07 08:03 | PC.NURSE ---
pt is alert and oriented, skin pwd, respirations even and unlabored, ls diminished on the right lower lobe, pig tail in place on the right upper chest, dressing intact and no noticeable crepitous, pt's abd distend pt hx of ascites with being drained, bowel sounds in all 4 quadrants, pt is reporting pain in the abd and the pig tail site 07/18
--- NOTE | 2024-05-07 08:32 | P.EN_ITS ---
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 S/p recent right-sided Port-A-Cath revision (05/03; Port-A-Cath was found to have an erosion) by [place] [facility] ?Bronchial pleural fistula. S/p chest tube placed by ALEXA rasheed. Post chest tube placement CXR showed no pneumothorax size changes. Thoracic surgery to see Head trauma --> scalp hematoma, no intracranial hemorrhage. Apply ice as needed. s/p fall. PT eval. Fall precautions. Check vitamin-D. PT eval Hyponatremia, chronic. Na level 131 (05/04). Today is 132. Recently treated with urea pills by [place] [facility] She has no longer taking urea pills. Continue to monitor. Ascites, s/p paracentesis (04/28; 1700 ml of serous fluid removed, cultures negative). Paracentesis if worse Recent diagnosis of pulmonary abscess and pneumonia (not new). Patient is to complete a course of Augmentin X 4-6 weeks (per ID service at [facility] Continue Augmentin. Chronic anemia, status post recent PRBC transfusion X. Hgb 7.5 (05/04). It is 9.4 today. Continue to monitor. Pancreatic cancer. Chemotherapy on hold due to ongoing pneumonia. Oxycodone for pain 15 q4 prn Right atrial thrombus and pulmonary embolism. Continue Eliquis. Graves disease in remission. s/p radioactive iodine. TSH 1.99 (04/26). Cancer pain. Continue oxycodone. History of hyperlipidemia. Not taking statin due to poor p.o. intake of calories + malnutrition. Protein calorie malnutrition. BMI 17.7 kg/m2. Ensure tid. Dietary consult. Discoid lupus. The currently on treatment. Constipation. Continue home meds. DVT prophylaxis: Eliquis Code status: [employer] Laboratory Technician Spent With Patient Time: Total time managing care of this patient today ____ minutes.
[2024-05-07 08:45] VITALS: BP 106/63; PULSE 70; RESP 16; TEMP 36.8; O2SAT 95
[2024-05-07] MEDS: Amoxicillin/Potassium Clav 875 MG TABLET PO ×2 (09:03→20:50)
[2024-05-07 09:24] VITALS: BP 119/68; PULSE 73; RESP 16; TEMP 36.7; O2SAT 94
[2024-05-07 09:35] VITALS: BMI 17.0
--- NOTE | 2024-05-07 10:12 | PHA.MEDREC ---
Pharmacy Consult ? Medication Reconciliation Pharmacy has completed the medication reconciliation. Pt discharged from [facility] on 05/04/24. utilized discharge meds summary.
--- NOTE | 2024-05-07 13:08 | HO.THORCON_ITS ---
History of Present Illness Consult details Consult date: 05/07/24 Narrative: Patient is an unfortunate 63-year-old female with a plethora of medical problems including metastatic pancreatic cancer. Currently being treated at [facility] with chemotherapy. Revision last week Along with the appreciable comorbidities, patient presented here and was found to have a right small pneumothorax. This was worked up and demonstrates also a cavitary lesion involving the right lower lobe. At present, precise etiology of this is unknown; infectious, inflammatory, neoplastic. Could this be the cause pneumothorax, is also unknown. Patient had a right Port-A-Cath revision last week which also could have been a contributor to this pneumothorax. The meantime, patient chest tube placed by ER physician. Small pneumothorax still persists. Patient has no ew or extreme respiratory symptoms now. Pleur-evac demonstrates no air leak. Chest tube dressing clean dry and intact PMFSH Past Medical History Medical History (Updated 05/07/24 @ 07:14 by Phani Jenkins MD) Cavitary pneumonia Graves disease Discoid lupus Hyperlipidemia Pulmonary embolism Adenocarcinoma of pancreas Social History Social History Household Members: Spouse and Family Housing: House Do you presently have visiting nurse or other home services: Yes (no intake yet) Patient Tobacco Use Status: Former Tobacco user Tobacco use type: Cigarette Second Hand Smoke Exposure: No Meds Allergies Allergy/AdvReac Type Severity Reaction Status Date / Time erythromycin base Allergy Mild RASH Verified 05/06/24 22:16 [ERYTHROMYCIN BASE] tetracycline [TETRACYCLINE] Allergy Mild RASH Verified 05/06/24 22:16 Active Medications: Current Medications Acetaminophen (Acetaminophen 325 Mg Tablet) 975 mg PO Q6H PRN PRN Reason: Pain, Mild (Pain Scale 1-3), fever or headache Amoxicillin/Clavulanate Potassium (Amoxicillin/Potassium Clav 875 Mg Tablet) 875 mg PO Q12H GARRY Last Admin: 05/07/24 09:03 Dose: 875 mg Lipase/Protease/Amylase (Lipase/Prot/Amylase 12/38/60k Capsule.) 2 cap PO DAILY PRN PRN Reason: snack Lipase/Protease/Amylase (Lipase/Prot/Amylase 12/38/60k Capsule.) 2 cap PO TIDWM GARRY Apixaban (Apixaban 5 Mg Tablet) 5 mg PO BID GARRY Apixaban (Apixaban 5 Mg Tablet) 5 mg PO ONCE ONE Stop: 05/07/24 13:02 Atorvastatin Calcium (Atorvastatin Calcium 40 Mg Tablet) 40 mg PO DAILY [facility] Docusate Sodium (Docusate Sodium 100 Mg Capsule) 100 mg PO BID PRN PRN Reason: Constipation Famotidine (Famotidine 20 Mg Tablet) 20 mg PO BID [facility] Lactated Ringer's (Lr) 1,000 mls @ 80 mls/hr IVCONT .[id number] [facility] Stop: 05/07/24 13:29 Last Admin: 05/07/24 03:38 Dose: 80 mls/hr Lactulose (Lactulose 20 Gm/30 Ml Solution) 10 gm PO DAILY PRN PRN Reason: Constipation Olanzapine (Olanzapine 5 Mg Tablet) 5 mg PO BEDTIME [facility] Omeprazole (Omeprazole 40 Mg Capsule.Dr) 40 mg PO BID@0630,1630 [facility] Oxycodone HCl (Oxycodone Hcl Immed Release 15 Mg Tablet) 15 mg PO Q4H PRN PRN Reason: Pain, Severe (Pain Scale 7-10) Polyethylene Glycol (Polyethylene Glycol 3350 17 Gm Powd.Pack) 17 gm PO DAILY PRN PRN Reason: Constipation Prochlorperazine Maleate (Prochlorperazine Maleate 5 Mg Tablet) 10 mg PO TID PRN PRN Reason: Nausea And Vomiting Senna (Sennosides 8.6 Mg Tablet) 8.6 mg PO BEDTIME PRN PRN Reason: Constipation Sodium Chloride (0.9 % Sodium Chloride Flush 3 Ml Syringe) 3 ml IVFLUSH [facility] Last Admin: 05/07/24 07:58 Dose: Not Given Thiamine HCl (Thiamine Hcl 100 Mg Tablet) 100 mg PO DAILY [facility] Home Medications ?Medication ?Instructions ?Recorded ?Confirmed ?Last Taken ?Type Magic Mouthwash 5 - 10 ml PO Q2H PRN mouth/throat 05/07/24 05/07/24 Unknown History pain acetaminophen 325 mg tablet 650 mg PO Q6H PRN Pain 05/07/24 05/07/24 Unknown History (Tylenol) amoxicillin 875 mg-potassium 1 tab PO BID 05/07/24 05/07/24 Unknown History clavulanate 125 mg tablet apixaban 5 mg tablet (Eliquis) 5 mg PO BID 05/07/24 05/07/24 Unknown History atorvastatin 40 mg tablet 40 mg PO DAILY 05/07/24 05/07/24 Unknown History docusate sodium 100 mg capsule 100 mg PO BID PRN Constipation 05/07/24 05/07/24 Unknown History famotidine 20 mg tablet 20 mg PO BID 05/07/24 05/07/24 Unknown History lactulose 10 gram/15 mL oral 15 ml PO DAILY PRN Constipation 05/07/24 05/07/24 Unknown History solution [id number] 2 cap PO DAILY PRN snack 05/07/24 05/07/24 Unknown History 12,000-38,000-60,000 unit capsule,delayed rel (Creon) [id number] 2 cap PO TIDWM 05/07/24 05/07/24 Unknown History 12,000-38,000-60,000 unit capsule,delayed rel (Creon) magnesium oxide 500 mg PO DAILY 05/07/24 05/07/24 Unknown History olanzapine 5 mg tablet 5 mg PO BEDTIME 05/07/24 05/07/24 Unknown History omeprazole 40 mg capsule,delayed 40 mg PO BID 05/07/24 05/07/24 Unknown History release ondansetron HCl 8 mg tablet 8 mg PO TID PRN Nausea And Vomiting 05/07/24 05/07/24 Unknown History oxycodone 5 mg tablet 10 mg PO Q4H PRN Pain 05/07/24 05/07/24 Unknown History polyethylene glycol 3350 17 gram 17 g PO DAILY PRN Constipation 05/07/24 05/07/24 Unknown History oral powder packet (Miralax) potassium, sodium phosphates 280 1 packet PO DAILY 05/07/24 05/07/24 Unknown History mg-160 mg-250 mg oral powder packet prochlorperazine maleate 10 mg 10 mg PO TID PRN Nausea And 05/07/24 05/07/24 Unknown History tablet Vomiting sennosides 8.6 mg tablet (senna) 8.6 mg PO BEDTIME PRN Constipation 05/07/24 05/07/24 Unknown History thiamine HCl (vitamin B1) 100 mg 100 mg PO DAILY 05/07/24 05/07/24 Unknown History tablet Physical Exam 2 Vital Signs: Vital Signs: Last Vital Signs Temp 98.1 F 05/07/24 09:24 Pulse 73 05/07/24 09:24 Resp 16 05/07/24 09:24 BP 119/68 05/07/24 09:24 Pulse Ox 94 05/07/24 09:24 O2 Del Method Nasal Cannula 05/07/24 09:24 O2 Flow Rate 1 05/07/24 09:24 BMI result Body Mass Index 17.0 Chest: Other: Chest breath sounds bilaterally and chest tube/Pleur-evac findings as noted. Results Labs 05/07/24 05:22 05/07/24 05:22 Labs: Abnormal lab results 05/07/24 05/07/24 05/07/24 Range/Units 00:38 00:39 05:22 WBC 12.7 H (4.8-10.8) X10*3/uL RBC 3.37 L 2.70 L (4.20-5.50) X10*6/uL Hgb 9.4 L D 7.6 L (12.0-16.0) g/dl Hct 29.3 L D 23.8 L (37.0-47.0) % RDW 18.4 H 18.3 H (11.0-16.0) % Immature Gran % (Auto) 1.1 H (0.0-0.4) % Neut % (Auto) 82.0 H (45-73) % Lymph % (Auto) 11.1 L (20-40) % Abs Immat Gran (auto) 0.14 H (0.00-0.03) X10*3/uL Absolute Neuts (auto) 10.4 H (2.0-8.3) x10*3/uL PT 17.4 H (11.1-13.3) SEC INR 1.4 H (0.9-1.1) Sodium 133 L 132 L (135-145) mmol/L Chloride 95 L (96-108) mmol/L BUN 6 L 4 L (9-16) mg/dL Creatinine 0.49 L 0.46 L (0.5-1.4) mg/dL Random Glucose 139 H 120 H (60-115) mg/dL AST 33 H (5-31) U/L Albumin 2.5 L (3.5-5.0) g/dL 25-OH Vitamin D Total 23.9 L (>30) ng/mL Short CBC 06/30/24 06/30/24 Range/Units 00:38 05:22 WBC 12.7 H 8.9 (4.8-10.8) X10*3/uL Hgb 9.4 L D 7.6 L (12.0-16.0) g/dl Hct 29.3 L D 23.8 L (37.0-47.0) % Plt Count 395 D 337 (160-400) X10*3/uL BMP 05/07/24 05/07/24 00:39 05:22 Sodium 133 L 132 L Potassium 4.4 4.5 Chloride 95 L 98 Carbon Dioxide 26 25 BUN 6 L 4 L Creatinine 0.49 L 0.46 L Calcium 9.2 D 8.9 Liver Function 05/07/24 Range/Units 00:39 Total Bilirubin 0.3 (0.0-1.0) mg/dL AST 33 H (5-31) U/L ALT 14 (0-31) U/L Alkaline Phosphatase 88 (39-117) U/L Albumin 2.5 L (3.5-5.0) g/dL All other labs normal. Assessment and Plan (1) Pneumothorax on right: Status: Acute (2) Cavitary pneumonia: Status: Acute Plan At present, keep chest tube to wall suction with serial x-rays and exams. Further interventions and studies will be directed with the patient's clinical course and x-ray evaluations. Procedures Date of Service Date of Service: 05/07/24
[2024-05-07] MEDS: Apixaban 5 MG TABLET PO ×2 (13:21→20:50)
[2024-05-07 15:30] VITALS: BP 117/64; PULSE 70; RESP 12; TEMP 36.2; O2SAT 96
[2024-05-07] MEDS: Omeprazole 40 MG CAPSULE.DR PO (16:23)
[2024-05-07] MEDS: Morphine Sulfate 2 MG/ML CARTRIDGE IVPUSH (16:24)
[2024-05-07] MEDS: 0.9 % Sodium Chloride Flush 3 ML SYRINGE IVFLUSH ×2 (16:30→20:50)
--- NOTE | 2024-05-07 16:31 | MHC.CM.PN ---
PT REPORTS SHE LIVES WITH HER AND IS INDEPENDENT WITH CARE SHE HAS A TRANSPORT CHAIR AND JUST ORDERED A ROLLATOR SHE IS ACTIVE WITH [facility] FOR HOME PT SHE SAYS SHE HAS A HCP AT HOME, COPY REQUESTED PCP: SANCHEZ THRASHER DCP: HOME RESUME [facility] TO TRANSPORT
--- NOTE | 2024-05-07 17:34 | PC.NURSE ---
0930- Pt arrived to unit with pigtail catheter to right anterior chest. No current chest tube orders in the system. Superviser Mandy and charge nurse Penelope aware. Telephone orders obtained from Dr Braswell by nursing superviser. 1030-Pt connected to -20cm low wall suction per orders. Scant to no drainage noted. Dressing CDI. No crepitus noted. Pt tolerating chest tube. Medicated this shift for pain with po oxycodone and morphine IV with good effect. Assisted to commode to void and small BM.
[2024-05-07 19:33] VITALS: BP 112/65; PULSE 73; RESP 18; TEMP 36.3; O2SAT 96
[2024-05-07] MEDS: Famotidine 20 MG TABLET PO (20:50)
[2024-05-08] MEDS: oxyCODONE HCl Immed Release 15 MG TABLET PO ×5 (03:25→21:05)
[2024-05-08 03:44] VITALS: BP 112/59; PULSE 69; RESP 16; TEMP 36.1; O2SAT 99
[2024-05-08] MEDS: Omeprazole 40 MG CAPSULE.DR PO ×2 (05:47→17:03)
[2024-05-08 06:56] VITALS: BP 115/64; PULSE 81; RESP 16; TEMP 36.6; O2SAT 97
[2024-05-08] MEDS: Amoxicillin/Potassium Clav 875 MG TABLET PO ×2 (07:23→21:00)
[2024-05-08] MEDS: Lipase/Prot/Amylase 24/76/120K 1 CAP CAPSULE.DR PO ×3 (07:23→17:03)
[2024-05-08] MEDS: Atorvastatin Calcium 40 MG TABLET PO (07:23)
[2024-05-08] MEDS: Thiamine HCL 100 MG TABLET PO (07:23)
[2024-05-08] MEDS: Apixaban 5 MG TABLET PO ×2 (07:24→21:00)
[2024-05-08] MEDS: Famotidine 20 MG TABLET PO ×2 (07:24→21:00)
[2024-05-08] MEDS: 0.9 % Sodium Chloride Flush 3 ML SYRINGE IVFLUSH ×3 (07:27→23:45)
--- NOTE | 2024-05-08 10:46 | HO.PM.IMPN ---
Subjective Subjective Date of Service: 05/08/24 Interval History: f/u on PTX, has some abdomen and back pain--all chronic and some pain at the chest tube site Physical Exam Vital Signs: Vital Signs: Last Vital Signs Temp 98 F 05/08/24 06:56 Pulse 81 05/08/24 06:56 Resp 16 05/08/24 06:56 BP 115/64 05/08/24 06:56 Pulse Ox 97 05/08/24 06:56 O2 Del Method Nasal Cannula 05/08/24 06:56 O2 Flow Rate 1 05/08/24 06:56 BMI result Body Mass Index 17.0 Const: Other: General: AO X 3, no acute distress, frail Resp: CTA bilateral, right chest tube CVS: S1,S2,RRR GI: +BS, NT, no distention Skin: No rash Neuro: motor grossly intact Psych: appropriate affect Objective Data Active Medications Acetaminophen (Acetaminophen 325 Mg Tablet) 975 mg PO Q6H PRN PRN Reason: Pain, Mild (Pain Scale 1-3), fever or headache Amoxicillin/Clavulanate Potassium (Amoxicillin/Potassium Clav 875 Mg Tablet) 875 mg PO Q12H REPLACED BY [facility] Last Admin: 05/08/24 07:23 Dose: 875 mg Documented By: MEHUL Lipase/Protease/Amylase (Lipase/Prot/Amylase 24/76/120k 1 Cap Capsule.) 1 cap PO DAILY PRN PRN Reason: snack Lipase/Protease/Amylase (Lipase/Prot/Amylase 24/76/120k 1 Cap Capsule.) 1 cap PO TIDWM REPLACED BY [facility] Last Admin: 05/08/24 07:23 Dose: 1 cap Documented By: MEHUL Apixaban (Apixaban 5 Mg Tablet) 5 mg PO BID REPLACED BY [facility] Last Admin: 05/08/24 07:24 Dose: 5 mg Documented By: MEHUL Atorvastatin Calcium (Atorvastatin Calcium 40 Mg Tablet) 40 mg PO DAILY [facility]PLACED BY [facility] Last Admin: 05/08/24 07:23 Dose: 40 mg Documented By: MEHUL Docusate Sodium (Docusate Sodium 100 Mg Capsule) 100 mg PO BID PRN PRN Reason: Constipation Famotidine (Famotidine 20 Mg Tablet) 20 mg PO BID REPLACED BY [facility] Last Admin: 05/08/24 07:24 Dose: 20 mg Documented By: MEHUL Lactulose (Lactulose 20 Gm/30 Ml Solution) 10 gm PO DAILY PRN PRN Reason: Constipation Morphine Sulfate (Morphine Sulfate 2 Mg/Ml Cartridge) 2 mg IVPUSH Q6H PRN; Protocol PRN Reason: Pain, Severe (Pain Scale 7-10) Last Admin: 05/07/24 16:24 Dose: 2 mg Documented By: MEHUL Olanzapine (Olanzapine 5 Mg Tablet) 5 mg PO BEDTIME REPLACED BY [facility] Last Admin: 05/07/24 20:54 Dose: Not Given Documented By: VONNIE Non-Admin Reason: pt states she does not take Omeprazole (Omeprazole 40 Mg Capsule.) 40 mg PO BID@0630,1630 REPLACED BY [facility] Last Admin: 05/08/24 05:47 Dose: 40 mg Documented By: VONNIE Oxycodone HCl (Oxycodone Hcl Immed Release 15 Mg Tablet) 15 mg PO Q4H PRN PRN Reason: Pain, Moderate(Pain Scale 4-6) Last Admin: 05/08/24 07:24 Dose: 15 mg Documented By: MEHUL Polyethylene Glycol (Polyethylene Glycol 3350 17 Gm Powd.Pack) 17 gm PO DAILY PRN PRN Reason: Constipation Prochlorperazine Maleate (Prochlorperazine Maleate 5 Mg Tablet) 10 mg PO TID PRN PRN Reason: Nausea And Vomiting Senna (Sennosides 8.6 Mg Tablet) 8.6 mg PO BEDTIME PRN PRN Reason: Constipation Sodium Chloride (0.9 % Sodium Chloride Flush 3 Ml Syringe) 3 ml IVFLUSH QSHIFT REPLACED BY [facility] Last Admin: 05/08/24 07:27 Dose: 3 ml Documented By: MEHUL Thiamine HCl (Thiamine Hcl 100 Mg Tablet) 100 mg PO DAILY REPLACED BY [facility] Last Admin: 05/08/24 07:23 Dose: 100 mg Documented By: MEHUL Labs 05/07/24 05:22 05/07/24 05:22 Microbiology Microbiology Results: Microbiology 05/07/24 01:22 Blood Culture - Preliminary Blood - Venous No growth after 24 hours. 05/07/24 01:22 Blood Culture - Preliminary Blood - Venous No growth after 24 hours. Assessment and Plan (1) Pancreatic cancer: Status: Acute (2) Pneumothorax on right: Status: Acute Plan 63/F w/ past medical history significant for pancreatic cancer on chemotherapy (currently on hold due to recent dx of PNA; last session about 4-5 weeks ago), right atrial thrombus on Eliquis, pulmonary embolism, ascites (s/p recent paracentesis 04/28 -1700 ml serous fluid removed, peritoneal fluids analysis, culures negative TD), hyperlipidemia, discoid lupus (not on treatment), Graves' disease on remission (s/p radioactive iodine), cancer pain in oxycodone and anemia presented with fall and found to have Small right-sided pneumothorax, no hypoxia or acute respiratory symptoms reported. S/p recent right-sided Port-A-Cath revision (05/03; Port-A-Cath was found to have an erosion) [place] [facility] [place] ?Bronchial pleural fistula. S/p chest tube. Xray today show residual small apical PTX, throacic surgery to decide on when tube comes out Head trauma --> scalp hematoma, no intracranial hemorrhage. local care s/p fall. PT eval. Fall precautions. Check vitamin-D. PT eval, she anticipates going back home when ready Hyponatremia, chronic. Na level 131 (05/04). Today is 132. Recently treated with [place] pills [place] [facility] [place] She has no longer taking urea pills. Continue to monitor. Ascites, s/p paracentesis (04/28; 1700 ml of serous fluid removed, cultures negative). Paracentesis if worse Recent diagnosis of pulmonary abscess and pneumonia (not new). Patient is to complete a course of Augmentin X 4-6 weeks ([place] [facility] [place] Continue Augmentin. Chronic anemia, status post recent PRBC transfusion X. Hgb 7.5 (05/04). It is 9.4 today. Continue to monitor. Pancreatic cancer. Chemotherapy on hold due to ongoing pneumonia. Oxycodone for pain 15 q4 prn. Pancreatic enzyme replacement Right atrial thrombus and pulmonary embolism. Continue Eliquis. Graves disease in remission. s/p radioactive iodine. TSH 1.99 (04/26). Cancer pain. Continue oxycodone and morphine PRN History of hyperlipidemia. Not taking statin due to poor p.o. intake of calories + malnutrition. Protein calorie malnutrition. BMI 17.7 kg/m2. Ensure tid. Dietary consult. Discoid lupus. stable Constipation. Continue home meds. DVT prophylaxis: Eliquis Code status: Full Quality Stroke Does the patient have a stroke diagnosis?: No VTE Prior VTE?: No VTE Risk Level:: Medical - moderate - high VTE Device Contraindication: N/A - Device Ordered VTE Drug Contraindication: Treatment Not Indicated
[2024-05-08 10:48] VITALS: BMI 17.0
[2024-05-08] MEDS: Morphine Sulfate 2 MG/ML CARTRIDGE IVPUSH ×2 (11:00→15:29)
--- NOTE | 2024-05-08 11:02 | MHC.CLN ---
NUTRITION CONSULT FOR MALNUTRITION AND PANCREATIC CANCER. DIET=REGULAR DIET. ENSURE TID PROVIDES ADDITIONAL 1050 KCALS, 60 G PROTEIN. ATE 50% OF BREAKFAST TODAY. WILL TAKE ENSURE SUPPLEMENT. QUALIFIES MODERATELY MALNOURISHED IN THE CONTEXT OF CHRONIC ILLNESS. HAD PARACENTESIS 04/28. RECEIVES CHEMO FOR PANCREATIC CANCER. TX CURRENTLY HELD. CURRENT DIET AND SUPPLEMENT APPROPRIATE. MONITOR FOR PO INTAKE AND WEIGHT. SEE CLINICAL NUTRITION ASSESSMENT 05/08/24.
--- NOTE | 2024-05-08 11:08 | PM.PNTS ---
Subjective Subjective Date of Service: 05/08/24 Interval history: Denies pain. Denies shortness of breath. Physical Exam Vital Signs: Vital Signs: Last Vital Signs Temp 98 F 05/08/24 06:56 Pulse 81 05/08/24 06:56 Resp 16 05/08/24 06:56 BP 115/64 05/08/24 06:56 Pulse Ox 97 05/08/24 06:56 O2 Del Method Nasal Cannula 05/08/24 06:56 O2 Flow Rate 1 05/08/24 06:56 BMI result Body Mass Index 17.0 Const: General: comfortable, no acute distress and alert Nutritional Appearance: cachectic Orientation/consciousness: patient oriented x3 Resp: Other: right lateral chest tube in place pleurvac with no output, no air leak Effort & Inspection: normal respiratory effort Neuro: General: patient oriented x3 and moves all extremities Procedures Date of Service Date of Service: 05/08/24 Progress Note: A&P Assessment and plan (1) Pneumothorax on right: Status: Acute (2) Cavitary pneumonia: Status: Acute (3) Pancreatic cancer: Status: Acute Plan Repeat CXR this am shows decrease in right pneumothorax with small residual remaining. No air leak on exam. Cont chest tube to suction for now. Repeat CXR in AM. If resolved, possible placement to water seal in AM. Time Spent With Patient Time: Total time managing care of this patient today ____ minutes. Quality Stroke Does the patient have a stroke diagnosis?: No VTE Prior VTE?: No VTE Risk Level:: Medical - moderate - high VTE Device Contraindication: N/A - Device Ordered VTE Drug Contraindication: Treatment Not Indicated
--- NOTE | 2024-05-08 14:50 | MHC.CM.PN ---
EMR REVIEWED AND PER MD ROUNDS, PT IS NOT MEDICALLY CLEARED FOR DC (CHEST TUBE TO SUCTION) . [facility] UPDATED. CM WILL CONTINUE TO FOLLOW FOR ANY CHANGE TO DC PLAN/NEEDS.
[2024-05-08 15:05] VITALS: BP 113/61; PULSE 78; RESP 15; TEMP 36.5; O2SAT 93
[2024-05-08 19:02] VITALS: BP 117/67; PULSE 76; RESP 15; TEMP 36.1; O2SAT 93
[2024-05-09] MEDS: oxyCODONE HCl Immed Release 15 MG TABLET PO ×6 (01:05→22:30)
[2024-05-09 03:45] VITALS: BP 119/67; PULSE 71; RESP 16; TEMP 36.6; O2SAT 94
[2024-05-09] MEDS: Omeprazole 40 MG CAPSULE.DR PO ×2 (05:20→17:08)
[2024-05-09] MEDS: 0.9 % Sodium Chloride Flush 3 ML SYRINGE IVFLUSH ×3 (07:16→21:21)
[2024-05-09 07:27] VITALS: BP 95/63; PULSE 73; RESP 16; TEMP 36.9; O2SAT 95
--- NOTE | 2024-05-09 08:20 | P.PNIM_ITS ---
Subjective Subjective Date of Service: 05/09/24 Interval History: f/u on PTX, no sob, CXR today less trace PTX Physical Exam 2 Vital Signs: Vital Signs: Last Vital Signs Temp 98.5 F 05/09/24 07:27 Pulse 73 05/09/24 07:27 Resp 16 05/09/24 07:27 BP 95/63 05/09/24 07:27 Pulse Ox 95 05/09/24 07:27 O2 Del Method Room Air 05/09/24 07:27 O2 Flow Rate 1 05/08/24 06:56 BMI result Body Mass Index 17.0 General: AO X 3, no acute distress, emaciated Resp: CTA bilateral CVS: S1,S2,RRR GI: +BS, NT, no distention Skin: No rash Neuro: motor grossly intact Psych: appropriate affect Objective Data Active Medications Acetaminophen (Acetaminophen 325 Mg Tablet) 975 mg PO Q6H PRN PRN Reason: Pain, Mild (Pain Scale 1-3), fever or headache Amoxicillin/Clavulanate Potassium (Amoxicillin/Potassium Clav 875 Mg Tablet) 875 mg PO Q12H [facility] Last Admin: 05/08/24 21:00 Dose: 875 mg Documented By: GERARDO Lipase/Protease/Amylase (Lipase/Prot/Amylase 24/76/120k 1 Cap Capsule.) 1 cap PO DAILY PRN PRN Reason: snack Lipase/Protease/Amylase (Lipase/Prot/Amylase 24/76/120k 1 Cap Capsule.) 1 cap PO TIDWM [facility] Last Admin: 05/08/24 17:03 Dose: 1 cap Documented By: MEHUL Apixaban (Apixaban 5 Mg Tablet) 5 mg PO BID [facility] Last Admin: 05/08/24 21:00 Dose: 5 mg Documented By: GERARDO Atorvastatin Calcium (Atorvastatin Calcium 40 Mg Tablet) 40 mg PO DAILY [facility] Last Admin: 05/08/24 07:23 Dose: 40 mg Documented By: MEHUL Docusate Sodium (Docusate Sodium 100 Mg Capsule) 100 mg PO BID PRN PRN Reason: Constipation Famotidine (Famotidine 20 Mg Tablet) 20 mg PO BID [facility] Last Admin: 05/08/24 21:00 Dose: 20 mg Documented By: GERARDO Lactulose (Lactulose 20 Gm/30 Ml Solution) 10 gm PO DAILY PRN PRN Reason: Constipation Morphine Sulfate (Morphine Sulfate 2 Mg/Ml Cartridge) 2 mg IVPUSH Q6H PRN; Protocol PRN Reason: Pain, Severe (Pain Scale 7-10) Last Admin: 05/08/24 15:29 Dose: 2 mg Documented By: MEHUL Olanzapine (Olanzapine 5 Mg Tablet) 5 mg PO BEDTIME [facility] Last Admin: 05/08/24 21:01 Dose: Not Given Documented By: GERARDO Non-Admin Reason: pt reports she does not take this med Omeprazole (Omeprazole 40 Mg Capsule.) 40 mg PO BID@0630,1630 [facility] Last Admin: 05/09/24 05:20 Dose: 40 mg Documented By: GERARDO Oxycodone HCl (Oxycodone Hcl Immed Release 15 Mg Tablet) 15 mg PO Q4H PRN PRN Reason: Pain, Moderate(Pain Scale 4-6) Last Admin: 05/09/24 05:20 Dose: 15 mg Documented By: GERARDO Polyethylene Glycol (Polyethylene Glycol 3350 17 Gm Powd.Pack) 17 gm PO DAILY PRN PRN Reason: Constipation Prochlorperazine Maleate (Prochlorperazine Maleate 5 Mg Tablet) 10 mg PO TID PRN PRN Reason: Nausea And Vomiting Senna (Sennosides 8.6 Mg Tablet) 8.6 mg PO BEDTIME PRN PRN Reason: Constipation Sodium Chloride (0.9 % Sodium Chloride Flush 3 Ml Syringe) 3 ml IVFLUSH QSHIFT [facility] Last Admin: 05/09/24 07:16 Dose: 3 ml Documented By: WILL Thiamine HCl (Thiamine Hcl 100 Mg Tablet) 100 mg PO DAILY [facility] Last Admin: 05/08/24 07:23 Dose: 100 mg Documented By: MEHUL Labs 05/07/24 05:22 05/07/24 05:22 Microbiology Microbiology Results: Microbiology 05/07/24 01:22 Blood Culture - Preliminary Blood - Venous No growth after 48 hours. 05/07/24 01:22 Blood Culture - Preliminary Blood - Venous No growth after 48 hours. Assessment and Plan (1) Pancreatic cancer: Status: Acute (2) Pneumothorax on right: Status: Acute Plan 63/F w/ past medical history significant for pancreatic cancer on chemotherapy (currently on hold due to recent dx of PNA; last session about 4-5 weeks ago), right atrial thrombus on Eliquis, pulmonary embolism, ascites (s/p recent paracentesis 04/28 -1700 ml serous fluid removed, peritoneal fluids analysis, culures negative TD), hyperlipidemia, discoid lupus (not on treatment), Graves' disease on remission (s/p radioactive iodine), cancer pain in oxycodone and anemia presented with fall and found to have Small right-sided pneumothorax, no hypoxia or acute respiratory symptoms reported. S/p recent right-sided Port-A-Cath revision (05/03; Port-A-Cath was found to have an erosion) [place] [facility] [place] ?Bronchial pleural fistula. S/p chest tube. Xray today show residual lesser small apical PTX, throacic surgery to decide on when tube comes out Head trauma --> scalp hematoma, no intracranial hemorrhage. local care s/p fall. PT eval. Fall precautions. Check vitamin-D. PT eval, she anticipates going back home when ready Hyponatremia, chronic. Na level 131 (05/04). Today is 132. Recently treated with urea pills [place] [facility] [place] She has no longer taking urea pills. Continue to monitor. Ascites, s/p paracentesis (04/28; 1700 ml of serous fluid removed, cultures negative). Paracentesis if worse Recent diagnosis of pulmonary abscess and pneumonia (not new). Patient is to complete a course of Augmentin X 4-6 weeks (per [place] service [place] [facility] [place] Continue Augmentin. Chronic anemia, status post recent PRBC transfusion X. Hgb 7.5 (05/04). It is 9.4 today. Continue to monitor. Pancreatic cancer. Chemotherapy on hold due to ongoing pneumonia. Oxycodone for pain 15 q4 prn. Pancreatic enzyme replacement Right atrial thrombus and pulmonary embolism. Continue Eliquis. Graves disease in remission. s/p radioactive iodine. TSH 1.99 (04/26). Cancer pain. Continue oxycodone and morphine PRN History of hyperlipidemia. Not taking statin due to poor p.o. intake of calories + malnutrition. Protein calorie malnutrition. BMI 17.7 kg/m2. Ensure tid. Dietary consult. Discoid lupus. stable Constipation. Continue home meds. DVT prophylaxis: Eliquis Code status: Full need for inpatient: managment of acute PTX with chest tube Quality Stroke Does the patient have a stroke diagnosis?: No VTE Prior VTE?: No VTE Risk Level:: Medical - moderate - high VTE Device Contraindication: N/A - Device Ordered VTE Drug Contraindication: Treatment Not Indicated
[2024-05-09] MEDS: Famotidine 20 MG TABLET PO ×2 (08:45→21:21)
[2024-05-09] MEDS: Lipase/Prot/Amylase 24/76/120K 1 CAP CAPSULE.DR PO ×3 (08:45→17:08)
[2024-05-09] MEDS: Amoxicillin/Potassium Clav 875 MG TABLET PO ×2 (08:45→21:21)
[2024-05-09] MEDS: Thiamine HCL 100 MG TABLET PO (08:45)
[2024-05-09] MEDS: Apixaban 5 MG TABLET PO ×2 (08:45→21:21)
[2024-05-09] MEDS: Atorvastatin Calcium 40 MG TABLET PO (08:45)
--- NOTE | 2024-05-09 10:41 | P.PNTS_ITS ---
Subjective Subjective Date of Service: 05/09/24 Interval history: C/o pain at chest tube site. Physical Exam Vital Signs: Vital Signs: Last Vital Signs Temp 98.5 F 05/09/24 07:27 Pulse 73 05/09/24 07:27 Resp 16 05/09/24 07:27 BP 95/63 05/09/24 07:27 Pulse Ox 95 05/09/24 07:27 O2 Del Method Room Air 05/09/24 07:27 O2 Flow Rate 1 05/08/24 06:56 BMI result Body Mass Index 17.0 Const: General: comfortable, no acute distress and alert Orientation/consciousness: patient oriented x3 Resp: Other: right lateral chest tube remains in place pleurvac with no air leak, no drainage Effort & Inspection: normal respiratory effort and no respiratory distress Neuro: General: patient oriented x3 and moves all extremities Procedures Date of Service Date of Service: 05/09/24 Progress Note: A&P Assessment and plan (1) Pneumothorax on right: Status: Acute Plan Repeat CXR this am shows decrease in right pneumothorax with trace remaining. No air leak on exam. Will place to water seal. Repeat CXR later this afternoon. If lung remains up, possible dc chest tube later today or tomorrow. Patient com fortable with plan. Time Spent With Patient Time: Total time managing care of this patient today ____ minutes. Quality Stroke Does the patient have a stroke diagnosis?: No VTE Prior VTE?: No VTE Risk Level:: Medical - moderate - high VTE Device Contraindication: N/A - Device Ordered VTE Drug Contraindication: Treatment Not Indicated
--- NOTE | 2024-05-09 14:05 | P.CDIM_ITS ---
PROVIDER RESPONSE TEXT: To clarify, the appropriate diagnosis supported by the clinical indicators: Severe QUERY TEXT: PHYSICIAN'S DOCUMENTATION REQUEST Date of Query: 05/08/2024 12:16 PM EDT Patient Name: Betzaida Ballard Admit Date: 05/07/2024 Dear Favian Sosa, A review of the medical record indicates additional documentation may be needed. Please review below and update the documentation accordingly. Documentation includes the diagnosis of malnutrition. Progress note 05/08 - Protein calorie malnutrition. BMI 17.7kg Ensure Nutrition notes patient qualifies as moderately malnourished in the context of chronic illness. If possible, please provide additional specificity regarding the severity of the malnutrition using t he above information: Mild Moderate Severe Other (explain) Clinically unable to determine (explain) Thank you, Geno Garcia, CCS, CDIS Use of terms such as suspected, likely, concern for, or probable (associated with a specific diagnosi s that is being evaluated, monitored, or treated as if it exists) are acceptable and can be coded in the inpatient se tting, when documented at the time of discharge. Please use your independent medical judgment in providing your response. THIS QUERY IS PART OF THE PERMANENT MEDICAL RECORD
[2024-05-09] MEDS: Morphine Sulfate 2 MG/ML CARTRIDGE IVPUSH ×2 (15:21→21:21)
[2024-05-09 15:34] VITALS: BP 102/55; PULSE 74; RESP 16; TEMP 36.7; O2SAT 93
[2024-05-09 19:31] VITALS: BP 137/63; PULSE 81; RESP 16; TEMP 37.4; O2SAT 95
[2024-05-10 02:50] VITALS: BP 136/74; PULSE 82; RESP 14; TEMP 36.4; O2SAT 93
[2024-05-10] MEDS: oxyCODONE HCl Immed Release 15 MG TABLET PO ×4 (03:03→15:56)
[2024-05-10] MEDS: Morphine Sulfate 2 MG/ML CARTRIDGE IVPUSH (04:12)
[2024-05-10] MEDS: Omeprazole 40 MG CAPSULE.DR PO ×2 (05:30→15:56)
[2024-05-10 07:38] VITALS: BP 132/64; PULSE 82; RESP 18; TEMP 37; O2SAT 95
[2024-05-10] MEDS: Apixaban 5 MG TABLET PO (07:48)
[2024-05-10] MEDS: Amoxicillin/Potassium Clav 875 MG TABLET PO (07:49)
[2024-05-10] MEDS: Thiamine HCL 100 MG TABLET PO (07:50)
[2024-05-10] MEDS: Atorvastatin Calcium 40 MG TABLET PO (07:50)
[2024-05-10] MEDS: 0.9 % Sodium Chloride Flush 3 ML SYRINGE IVFLUSH (07:50)
[2024-05-10] MEDS: Lipase/Prot/Amylase 24/76/120K 1 CAP CAPSULE.DR PO ×2 (07:50→11:38)
[2024-05-10] MEDS: Famotidine 20 MG TABLET PO (07:50)
--- NOTE | 2024-05-10 08:15 | PM.PNTS ---
Subjective Subjective Date of Service: 05/10/24 Interval history: Continues to c/o pain at chest tube site. Denies shortness of breath. Physical Exam Vital Signs: Vital Signs: Last Vital Signs Temp 98.6 F 05/10/24 07:38 Pulse 82 05/10/24 07:38 Resp 18 05/10/24 07:38 BP 132/64 05/10/24 07:38 Pulse Ox 95 05/10/24 07:38 O2 Del Method Room Air 05/10/24 02:50 O2 Flow Rate 1 05/08/24 06:56 BMI result Body Mass Index 17.0 Const: General: comfortable, no acute distress and alert Orientation/consciousness: patient oriented x3 Resp: Other: right lateral chest tube in place no air leak on pleurvac, no drainage Effort & Inspection: normal respiratory effort Skin: General skin exam: no rashes or lesions noted Neuro: General: patient oriented x3 and moves all extremities Procedures Date of Service Date of Service: 05/10/24 Progress Note: A&P Assessment and plan (1) Pancreatic cancer: Status: Acute (2) Pneumothorax on right: Status: Acute Plan F/u CXR with chest tube to water seal shows very small residual right pneumothorax, less than 10%, likely will resolve on its own. Chest tube therefore removed at bedside this morning uneventfully and occlusive dressing placed. Patient tolerated well. Repeat post procedure film in 1 hr. If CXR unchanged, stable for dc from thoracic standpoint. F/u with oncologist. Time Spent With Patient Time: Total time managing care of this patient today ____ minutes. Quality Stroke Does the patient have a stroke diagnosis?: No VTE Prior VTE?: No VTE Risk Level:: Medical - moderate - high VTE Device Contraindication: N/A - Device Ordered VTE Drug Contraindication: Treatment Not Indicated
--- NOTE | 2024-05-10 09:13 | MHC.CLN ---
F/U PATIENT WITH MALNUTRITION AND PANCREATIC CANCER. DIET=REGULAR DIET. ENSURE TID PROVIDES ADDITIONAL 1050 KCALS, 60 G PROTEIN. INTAKE AT MEALS APPEARS TO BE GOOD, 50-75%. CURRENT DIET AND SUPPLEMENT APPROPRIATE. MONITOR FOR PO INTAKE AND WEIGHT.
--- NOTE | 2024-05-10 09:28 | PM.DS ---
DS: Providers Provider Date of Service: 05/10/24 Date of admission: 05/07/24 03:21 Primary care physician: Ben Reese MD Consults: 05/07/24 03:24 Consult to General Surgery Routine Consulting Provider[place] [facility] Reason for consultation: Right pneumothorax Has provider been notified: Yes DS: Diagnosis Discharge Diagnosis (1) Pancreatic cancer: Status: Acute (2) Pneumothorax on right: Status: Acute DS: Summary Hospital Course Hospital Course: admission hpi Chief Complaint: Omer Ballard is a very pleasant 63 years old woman with past medical history significant for pancreatic cancer on chemotherapy (currently on hold due to recent dx of PNA; llast session about 4-5 weeks ago), right atrial thrombus on Eliquis, pulmonary embolism, ascites (s/p recent paracentesis 04/28 -1700 ml serous fluid removed, peritoneal fluids analysis, culures negative TD), hyperlipidemia, 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 She fell because she has been feeling very weak, fell back hitting her head. She denied any loss of consciousness, headache, dizziness or palpitations. She did not report any shortness on breath, cough or chest pain. Her appetite has been very poor. She was recently admitted to [facility] for 10 days and was discharged 3 days ago. During this last hospitalization she underwent a pulmonary CTA that was concerning for pulmonary abscess + pneumonia and treated with IV antibiotics. She was also found to have a hemoglobin of 6.4 for which 1 unit of PRBC was transfused. The patient was evaluated by the ID service and was transitioned from Zosyn IV to Augmentin PO (4-6 weeks). The patient was evaluated by the neurology service as she was found to have hyponatremia, initiating urea tablets along with fluid restriction. Subsequently sodium levels improved and urea was stopped. Mrs. Ballard underwent a Port-A-Cath revision on May 03 by IR as her Port-A-Cath was noted to have an erosion. In the ED, she was found to have normal vital signs including normal oxygen saturation on room air. Blood workup was remarkable for leukocytosis of 12.7 and hemoglobin of 9.4. There is no lactic acidosis. Albumin is 2.5. There is hyponatremia of 133 and hypochloremia. INR is 1.4. Other lytes are normal. Creatinine is 0.49. LFTs are essentially normal. Head CT scan scan showed no acute intracranial pathology, subgaleal hematoma overlying the high posterior left parietal scalp without underlying calvarial fractures, C-spine without dislocation or fractures and small right apical pneumothorax partially visualized. 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 ED tx: Zosyn 3.375 g IV, morphine 4 mg IV, Zofran 4 mg IV Hospital course: She presented with a fall and found to have a small right-sided pneumothorax, without hypoxia or acute respiratory symptoms. The patient is status post a recent right-sided Port-A-Cath revision on 05/03 due to erosion, performed by Interventional Radiology (IR) at [facility]. There was a question of a bronchial pleural fistula. A chest tube was inserted in the Emergency Department (ED) and she was monitored by thoracic surgery with serial chest X-rays, which consistently showed a trace pneumothorax. After 3 days, the chest tube was removed. A post-removal X-ray stable trace pneumothorax, and the patient's breathing is now comfortable and asking to go home Head trauma --> scalp hematoma, no intracranial hemorrhage. local care s/p fall. Fall precautions. PT recommends home with services Hyponatremia, chronic. Na level 131 (05/04). Sodium ranges from 130 to 133 and has been stable, presently 133 Ascites, s/p paracentesis (04/28; 1700 ml of serous fluid removed, cultures negative). Had another therapeutic paracentesis today 05/10 with removal of 1.9 liters Recent diagnosis of pulmonary abscess and pneumonia (not new). Patient is to complete a course of Augmentin X 4-6 weeks (per ID service at [facility]). Continue Augmentin. Chronic anemia, status post recent PRBC transfusion X. Hgb 7.5 (05/04). H/H has been stable, presently 7.4 and 24.6 Pancreatic cancer. Chemotherapy on hold due to ongoing pneumonia and pulmonary abscess. Oxycodone for pain. Pancreatic enzyme replacement Right atrial thrombus and pulmonary embolism. Continue Eliquis. Graves disease in remission. s/p radioactive iodine. TSH 1.99 (04/26). Cancer pain. Continue oxycodone as before History of hyperlipidemia. Not taking statin due to poor p.o. intake of calories + malnutrition. Severe Protein calorie malnutrition. BMI 17.7 kg/m2. Ensure tid. Suplement recommended Time Attestation Discharge Coordination Time (in mins): 45 Quality: Safe Use of Opioids Does Pt have an Active Cancer Diagnosis on the Problem List?: No Quality: Stroke Does the patient have a stroke diagnosis?: No Physical Exam Vital Signs: Vital Signs: Last Vital Signs Temp 98.6 F 05/10/24 07:38 Pulse 82 05/10/24 07:38 Resp 18 05/10/24 07:38 BP 132/64 05/10/24 07:38 Pulse Ox 95 05/10/24 07:38 O2 Del Method Room Air 05/10/24 02:50 O2 Flow Rate 1 05/08/24 06:56 BMI result Body Mass Index 17.0 DS: Data Data Completed and Pending Labs on day of discharge: Preliminary micro results at discharge 05/07/24 01:22 Blood Culture - Preliminary Blood - Venous No growth after 48 hours. 05/07/24 01:22 Blood Culture - Preliminary Blood - Venous No growth after 48 hours. Discharge Plan Discharge Anticipated Discharge Date/Time: 05/10/24 09:31 Patient Disposition: Home Health Service Discharge Diagnosis: Fall, right sided pneumothorax, anemia, ascietes, Referrals: [facility] [Outside] - 1 Week (RESUMPTION OF HOME SERVICES FOR CARE HOME AND RESUMPTION OF PHYSICAL THERAPY - A NURSE WILL CALL YOU TO SET UP FIRST VISIT) Ben Reese MD [Primary Care Provider] - 1 Week Discharge Medications: Continued acetaminophen [Tylenol] 325 mg Tablet 650 mg PO Q6H PRN (Reason: Pain) atorvastatin 40 mg tablet 40 mg PO DAILY sennosides [senna] 8.6 mg Tablet 8.6 mg PO BEDTIME PRN (Reason: Constipation) polyethylene glycol 3350 [Miralax] 17 gram Powder In Packet 17 g PO DAILY PRN (Reason: Constipation) ondansetron HCl 8 mg tablet 8 mg PO TID PRN (Reason: Nausea And Vomiting) olanzapine 5 mg tablet 5 mg PO BEDTIME thiamine HCl (vitamin B1) 100 mg Tablet 100 mg PO DAILY prochlorperazine maleate 10 mg Tablet 10 mg PO TID PRN (Reason: Nausea And Vomiting) omeprazole 40 mg capsule,delayed release(DR/EC) 40 mg PO BID famotidine 20 mg tablet 20 mg PO BID docusate sodium 100 mg Capsule 100 mg PO BID PRN (Reason: Constipation) amoxicillin-pot clavulanate 875-125 mg tablet 1 tab PO BID Rx Instructions: END DATE: 06/03/24 magnesium oxide 250 mg magnesium Tablet 500 mg PO DAILY oxycodone 5 mg tablet 10 mg PO Q4H PRN (Reason: Pain) lactulose 10 gram/15 mL solution 15 ml PO DAILY PRN (Reason: Constipation) potassium, sodium phosphates 280-160-250 mg Powder In Packet 1 packet PO DAILY Rx Instructions: END DATE: 05/11/24 Creon 12,000-38,000 -60,000 unit capsule,delayed release(DR/EC) 2 cap PO TIDWM Creon 12,000-38,000 -60,000 unit capsule,delayed release(DR/EC) 2 cap PO DAILY PRN (Reason: snack) Eliquis 5 mg tablet 5 mg PO BID Magic Mouthwash 5 - 10 ml PO Q2H PRN (Reason: mouth/throat pain) Discharge Orders: Discharge Order (Routine); Ordered 05/10/24 Ordered By: Favian Sosa Diet: Advance to usual diet Activity on Discharge: As tolerated Stand Alone Forms: Patient Portal Discharge page Print Language: Syriac Care Plan Goals: recovery from fall and pneumothorax of the right lung Health Concerns: Pneumothorax of right lung-resolved fall active pancreatic cancer chronic anemia chronic hyponatremia Ascietes that need periodic paracentesis severe malnutrition Plan of Treatment: Resume prior function at home be cautious when ambulating, call 911 if you experience shortness of breath Continue all other prior medications and follow up with your Doctor in a week, Follow up with your oncologist as previously arranged Assessment: see above
[2024-05-10] MEDS: Lidocaine HCl 1 % 20 ML VIAL 5 ML SUBCUT (10:59)
[2024-05-10 12:04] LABS: Hematocrit 24.6 % (37.0-47.0); Hemoglobin 7.4 g/dl (12.0-16.0); Mean Corpuscular HGB Conc 30.1 g/dl (31.0-35.0); Mean Corpuscular Hemoglobin 27.2 pg (27.0-33.0); Mean Corpuscular Volume 90.4 fL (80.0-98.0); Mean Platelet Volume 10.3 fL (9.4-12.3); Platelet Count 320 X10*3/uL (160-400); Red Blood Count 2.72 X10*6/uL (4.20-5.50); Red Cell Distribution Width 18.7 % (11.0-16.0); White Blood Count 7.4 X10*3/uL (4.8-10.8)
[2024-05-10 12:15] LABS: Anion Gap 12 (12-20); Blood Urea Nitrogen 4 mg/dL (9-16); Calcium 9.1 mg/dL (8.4-10.2); Carbon Dioxide 29 mmol/L (22-29); Chloride 96 mmol/L (96-108); Creatinine Clr Calc Pharmacy 85.5; Estimated Glomerular Filt Rate > 60; Glucose Random 128 mg/dL (60-115); Potassium 3.7 mmol/L (3.3-5.1); Sodium 133 mmol/L (135-145)
--- NOTE | 2024-05-10 12:49 | MHC.CM.PN ---
EMR REVIEWED AND PER MD ROUNDS, PT MAY DC THIS AFTERNOON IF CXR IS STABLE. CM WILL CONTINUE TO FOLLOW FOR PLAN. [facility] UPDATED.
--- NOTE | 2024-05-10 14:00 | P.F2F_ITS ---
Service Date Service Date: 05/10/24 Encounter Date of encounter: 05/10/24 Reasons for Services Signs and symptoms assessed: weakness from cancer, fall Reason for assisted: medication management and teach disease management Reason for physical therapy: home safety and mobility, therapeutic exercises and energy conservation Homebound: Leaving the home is medically contraindicated at this time without the asist of a device and/or another person due th the listed conditions above and below. Reason homebound: unsteady gait / fall risk and poor balance / fall risk Homebound supporting statement: Homebound due to pancreatic cancer causing frailty and fall, severe malnutrition weakness and therefore needs the assistance of another person Certification: Based on the above findings, I certify that this patient is confined to the home and needs intermittent assisted care, physical therapy and/or speech therapy, or continues to need occupational therapy. The patient is under my care, and I have initiated the establishment of the plan of care. The patient will be followed by a physician who will periodically review the plan of care. Time Spent With Patient Time: Total time managing care of this patient today ____ minutes.
--- NOTE | 2024-05-10 15:08 | MHC.CM.PN ---
DP: PT HAS BEEN MEDICALLY CLEARED FOR DC HOME WITH [facility]ION OF [facility]. [facility] WILL TRANSPORT
[2024-05-10 15:22] VITALS: BP 115/67; PULSE 77; RESP 18; TEMP 37; O2SAT 97
== END 2024-05-10 16:46 | disposition home health service (06) | DRG 143 ==
LOC: HO.ED 23:20 → HO.EDOVER 05-07 03:56 → HO.S3 05-07 07:42
PROVIDERS: Admitting Provider Internal Medicine; Emergency Provider Internal Medicine; PCP Internal Medicine; Visit Provider Internal Medicine
DX: J95.811 Postprocedural pneumothorax (principal); R18.0 Malignant ascites; J85.1 Abscess of lung with pneumonia; E43 Unspecified severe protein-calorie malnutrition; E88.A Wasting disease (syndrome) due to underlying condition; E87.1 Hypo-osmolality and hyponatremia; S01.01XA Laceration without foreign body of scalp, initial encounter; D63.0 Anemia in neoplastic disease; E05.00 Thyrotoxicosis with diffuse goiter without thyrotoxic crisis or storm; Z68.1 Body mass index [BMI] 19.9 or less, adult; E78.5 Hyperlipidemia, unspecified; J98.4 Other disorders of lung; K59.00 Constipation, unspecified; L93.0 Discoid lupus erythematosus; G89.3 Neoplasm related pain (acute) (chronic); Z79.01 Long term (current) use of anticoagulants; W01.198A Fall on same level from slipping, tripping and stumbling with subsequent striking against other object, initial encounter; Z86.718 Personal history of other venous thrombosis and embolism; Z87.891 Personal history of nicotine dependence; Z79.899 Other long term (current) drug therapy
CPT/HCPCS: 36415; 49083; 70450; 71045; 71250; 72125; 80048; 80053; 82306; 83605; 83735; 84100; 85025; 85027; 85610; 85730; 86850; 86900; 86901; 87040; 97162; 99285; J2270; J2405; J2543; J7120

== ENCOUNTER 2024-05-07 03:21 | Outpatient (BNV) | payer OTHER, SELFPAY | END 2024-05-10 10:00 | PROVIDERS: Admitting Provider Internal Medicine; Emergency Provider Internal Medicine; PCP Internal Medicine; Visit Provider Physician Assistant Surgical | DX: R18.8 Other ascites (principal) | CPT/HCPCS: 49083 ==

== ENCOUNTER → 2024-05-07 03:21 | Outpatient (BNV) | payer OTHER, SELFPAY | PROVIDERS: Admitting Provider Internal Medicine; Emergency Provider Internal Medicine; PCP Internal Medicine; Visit Provider Surgery | DX: C25.9 Malignant neoplasm of pancreas, unspecified (principal); J93.9 Pneumothorax, unspecified | CPT/HCPCS: 99222; 99232 ==

== ENCOUNTER → 2024-05-07 03:21 | Outpatient (BNV) | payer OTHER, SELFPAY | PROVIDERS: Admitting Provider Internal Medicine; Emergency Provider Internal Medicine; PCP Internal Medicine; Visit Provider Internal Medicine | DX: C25.9 Malignant neoplasm of pancreas, unspecified (principal); J93.9 Pneumothorax, unspecified | CPT/HCPCS: 99223; 99232; 99239; 99499; G0180 ==